=== PATIENT | male | born 1980 | race Caucasian/White ===

== ENCOUNTER 2019-04-20 07:53 | Inpatient (IN) ==
[2019-04-20] MEDS ORDERED: DiphenhydrAMINE HCL 50 MG/ML VIAL ONE ×2 (07:58→07:59)
[2019-04-20] MEDS ORDERED: EPINEPHrine INJ 1 MG/ML AMP ONE (07:58)
[2019-04-20] MEDS ORDERED: SODIUM CHLORIDE 0.9% 250 ML IV PRN (08:00)
[2019-04-20] MEDS ORDERED: methylPREDNISolone 125 MG/2 ML VIAL IV STA (08:02)
[2019-04-20] MEDS ORDERED: LIDOCAINE 4% INH SOLN 4 ML BTL INH ONE (08:08)
[2019-04-20] MEDS ORDERED: FAMOTIDINE 20MG/5ML IV PUSH IV ONE (08:13)
[2019-04-20 08:18] LABS: Basophils # (auto) 0.03 K/uL (0-0.2); Basophils % (auto) 0.3 %; Eosinophils # (auto) 0.17 K/uL (0-0.5); Eosinophils % (auto) 1.6 %; Hematocrit (blood only) 55.2 % (42-52); Hemoglobin 18.6 g/dL (14.0-18.0); Immature Granulocytes # (auto) 0.03 K/uL (0.00-0.02); Immature Granulocytes % (auto) 0.3 %; Lymphocytes # (auto) 1.84 K/uL (1.2-3.4); Lymphocytes % (auto) 17.8 %; Mean Corpuscular Hemoglobin 34.4 pg (25-34); Mean Corpuscular Volume 102.2 fL (80-100); Mean Platelet Volume 11.8 fL (7.4-10.4); Monocytes # (auto) 1.38 K/uL (0.11-0.59); Monocytes % (auto) 13.4 %; Neutrophils # (auto) 6.88 K/uL (1.4-6.5); Neutrophils % (auto) 66.6 %; Platelet Count 232 K/uL (130-400); RDW Coefficient of Variation 13.4 % (11.5-14.5); RDW Standard Deviation 50.3 fL (36.4-46.3); White Blood Count 10.33 K/uL (4.8-10.8)
[2019-04-20 08:24] LABS: Mean Corpuscular Hgb Conc 33.7 g/dL (32-36)
[2019-04-20] MEDS ORDERED: GLYCOPYRROLATE 0.2 MG/ML VIAL ONE (08:26)
[2019-04-20] MEDS ORDERED: KETAMINE HCL INJ 50 MG/ML 10 ML VIAL ONE (08:27)
[2019-04-20] MEDS ORDERED: MIDAZOLAM HCL 1 MG/ML 2ML VIAL ONE ×2 (08:27→09:21)
[2019-04-20 08:39] LABS: Alanine Aminotransferase 31 U/L (12-78); Albumin Level 3.5 gm/dl (3.4-5.0); Aspartate Aminotransferase 11 U/L (15-37); BUN Creatinine Ratio 20.9 (10-20); Blood Urea Nitrogen 16 mg/dl (7-18); Calcium 9.8 mg/dl (8.5-10.1); Carbon Dioxide 30 mmol/L (21-32); Chloride 103 mmol/L (98-107); Est GFR (African American) 130.2; Est GFR (Non-African American) 112.3; Glucose 106 mg/dl (70-99); Potassium 3.6 mmol/L (3.5-5.1); Sodium 137 mmol/L (136-145)
[2019-04-20 08:41] LABS: Albumin Globulin Ratio 0.8 (0.9-2); Alkaline Phosphatase 79 U/L (45-117); Bilirubin,Total 0.6 mg/dl (0.2-1); Globulin 4.4 gm/dl (2.5-4.0); Total Protein 7.9 gm/dl (6.4-8.2)
[2019-04-20] MEDS ORDERED: PROPOFOL IV EMULSION 10 MG/ML 20 ML VIAL IV ONE (09:10)
--- NOTE | 2019-04-20 09:16 | Emergency Department Note ---
Entered by Litzy Hallman acting as a scribe for History of Present Illness General Chief complaint: Allergic Reaction Stated complaint: ALLERGIC REACTION, CAN'T BREATHE Time Seen by Provider: 04/20/19 07:59 History of Present Illness Provider complaint: allergic reaction Onset (ago): hour(s) 8 Pain Consistency: + other (worsening) Maximum Pain Intensity: 5 Quality: + other (allergic reaction) Associated symptoms: + other (unable to speak, having trouble breathing and swallowing, took Lisinopril shortly before this started) Treatments prior to arrival: other (Benadryl) The patient is a 38 year old male who presents to the ED with complaints of a worsening allergic reaction that started 8 hours ago. Per nursing staff, the patient came here via EMS from [facility]. Per nursing staff, the patient is unable to speak and is having trouble breathing and swallowing. Per nursing staff, this episode started shortly after he took Lisinopril. Per EMS, the patient was given Benadryl en route. HPI and ROS limited secondary to respiratory distress. Home Medications Home Medications Medication Instructions Recorded Confirmed Type amlodipine [Norvasc] 10 mg PO HS 04/20/19 04/20/19 History buspirone 10 mg PO DAILY@1700 04/20/19 04/20/19 History escitalopram oxalate [Lexapro] 10 mg PO DAILY@1700 04/20/19 04/20/19 History fluticasone propionate [Flovent 2 puff INHALATION BID 04/20/19 04/20/19 History HFA] folic acid 1 mg PO UD 04/20/19 04/20/19 History levetiracetam [Keppra] 500 mg PO UD 04/20/19 04/20/19 History lisinopril 20 mg PO BID 04/20/19 04/20/19 History metoprolol succinate 100 mg PO DAILY 04/20/19 04/20/19 History multivitamin 1 tab PO DAILY 04/20/19 04/20/19 History omeprazole 40 mg PO DAILY 04/20/19 04/20/19 History prednisone 50 mg PO UD 04/20/19 04/20/19 History thiamine HCl (vitamin B1) 100 mg PO UD 04/20/19 04/20/19 History Allergies Allergy/AdvReac Type Severity Reaction Status Date / Time HOLLAND Inhibitors Allergy Severe Angioedema Verified 04/20/19 10:43 Penicillins Allergy Mild Unknown Unverified 04/20/19 08:41 Sulfa (Sulfonamide Allergy Mild Unknown Unverified 04/20/19 08:41 Antibiotics) Past Med/Surg History Medical History Allergy to penicillin Allergy to sulfa drugs Hypertension Family History Other Unknown family medical history Social History Preferred Language: Swedish Communication Ability: INTUBATED 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 HPI and ROS limited secondary to respiratory distress. Physical Exam Vital Signs Vital Signs - 24 hr 04/20/19 08:01 04/20/19 08:25 Pulse Rate 85 86 Respiratory Rate 16 19 Respiratory Effort / Characteristics Non-Labored Respiratory Depth Normal Blood Pressure 192/105 H Blood Pressure Mean 134 Pulse Oximetry 95 94 Oxygen Delivery Method Room Air Room Air Sepsis Recent Fever Within 48 Hours No Sepsis Action Taken by Nursing No Action Required GENERAL: Awake, alert, well-appearing, in no acute distress HENT: Normocephalic, atraumatic. Oropharynx unremarkable. EYES: Normal conjunctiva. Sclera non-icteric. NECK: Supple. No nuchal rigidity. FROM. No JVD. RESPIRATORY: Clear to auscultation. CARDIAC: Regular rate, normal rhythm. Extremities warm and well perfused. Pulses equal. ABDOMEN: Soft, non-distended. No tenderness to palpation. No rebound or guarding. No masses. RECTAL: Deferred. MUSCULOSKELETAL: Chest examination reveals no tenderness. The back is symmetrical on inspection without obvious abnormality. There is no CVA tenderness to palpation. No joint edema. LOWER EXTREMITIES: Calves are equal size bilaterally and non-tender. No edema. No discoloration. NEURO: Normal sensorium. No sensory or motor deficits noted. SKIN: No rash or jaundice noted. Procedures Procedural Sedation Indication: other (Angioedema to protect airway (Intubation)) Presedation Evaluation: The planned sedation has been discussed with the patient. Informed Consent was obtained. I have identified the patient, determined the appropriateness of sedation and have assessed the patient immediately prior to the procedure. All medicine(s) and interventions are by my order. I performed the procedure Time of Last PO Intake: 20:00 Preparation: rf microwave engineer applied, pulse oximeter, capnometry used, supplemental O2 applied, suction/airway equipment at bedside and IV secured IV Propofol dose (mg): 150 Patient Tolerated Procedure: no complications Complications: none Interventions: intubation (planned intubation (nasal by Dr Morgan)) Course Course 0759: Past medical records reviewed. The patient was evaluated in room A01. A complete history and physical exam was performed. 0803: I discussed the patient's case with Dr. Leroy HONG, [employer] Nurse. 0806: I discussed the patient's case with Dr. Jason Ellis. He wants to send the patient to the PACU. He would like the patient to receive a nebulized lidocaine treatment. Consultations Consultation #1: I discussed the patient's case with Dr. Leroy HONG, [employer] Nurse. Time: 08:03 Consultation #2: I discussed the patient's case with Dr. Jason Ellis. He wants to send the patient to the PACU. He would like the patient to receive a nebulized lidocaine treatment. Time: 08:06 Administered Medications Diphenhydramine HCl (Benadryl) 50 mg IV Q8H [facility] Stop: 05/20/19 11:59 Last Admin: 04/21/19 03:36 Dose: 50 mg Documented by: [id number] Admin: 04/20/19 19:41 Dose: 50 mg Documented by: [id number] Admin: 04/20/19 12:13 Dose: 50 mg Documented by: [id number] Enoxaparin Sodium (Lovenox) 30 mg SQ Q12H [facility] Stop: 05/20/19 09:59 Last Admin: 04/20/19 21:54 Dose: 30 mg Documented by: [id number] Admin: 04/20/19 12:13 Dose: 30 mg Documented by: [id number] Fentanyl Citrate (Fentanyl Citrate) 50 mcg IV Q2H PRN PRN Reason: Moderate Pain (4,5,6) Stop: 05/04/19 09:20 Last Admin: 04/21/19 04:15 Dose: 50 mcg Documented by: [id number] Admin: 04/21/19 00:05 Dose: 50 mcg Documented by: [id number] Admin: 04/20/19 19:39 Dose: 50 mcg Documented by: [id number] Admin: 04/20/19 12:13 Dose: 50 mcg Documented by: [id number] Propofol (Diprivan) 1,000 mg in 100 mls @ 39.999 mls/hr IV .[id number] LOUIE; Protocol Stop: 04/23/19 09:29 Last Admin: 04/21/19 06:18 Dose: 61.16 mcg/kg/min, 40 mls/hr Documented by: [id number] Cosigned by: [id number] Titration: 04/21/19 05:52 Dose: 61.16 mcg/kg/min, 40 mls/hr Documented by: [id number] Cosigned by: [id number] Titration: 04/21/19 04:16 Dose: 61.16 mcg/kg/min, 40 mls/hr Documented by: [id number] Titration: 04/21/19 03:45 Dose: 35 mcg/kg/min, 22.9 mls/hr Documented by: [id number] Admin: 04/21/19 02:31 Dose: 30 mcg/kg/min, 19.6 mls/hr Documented by: [id number] Cosigned by: [id number] Titration: 04/21/19 02:31 Dose: 25 mcg/kg/min, 16.4 mls/hr Documented by: [id number] Cosigned by: [id number] Titration: 04/21/19 00:13 Dose: 25 mcg/kg/min, 16.4 mls/hr Documented by: [id number] Admin: 04/20/19 20:25 Dose: 20 mcg/kg/min, 13.1 mls/hr Documented by: [id number] Cosigned by: [id number] Titration: 04/20/19 20:25 Dose: 20 mcg/kg/min, 13.1 mls/hr Documented by: [id number] Cosigned by: [id number] Titration: 04/20/19 19:07 Dose: 20 mcg/kg/min, 13.1 mls/hr Documented by: [id number] Cosigned by: [id number] Admin: 04/20/19 18:25 Dose: Not Given Documented by: [id number] Titration: 04/20/19 13:02 Dose: 20 mcg/kg/min, 13.1 mls/hr Documented by: [id number] Admin: 04/20/19 12:57 Dose: 25 mcg/kg/min, 16.4 mls/hr Documented by: [id number] Cosigned by: [id number] Titration: 04/20/19 12:57 Dose: 30 mcg/kg/min, 19.6 mls/hr Documented by: [id number] Cosigned by: [id number] Titration: 04/20/19 12:24 Dose: 30 mcg/kg/min, 19.6 mls/hr Documented by: [id number] Titration: 04/20/19 12:14 Dose: 35 mcg/kg/min, 22.9 mls/hr Documented by: [id number] Titration: 04/20/19 10:20 Dose: 40 mcg/kg/min, 26.2 mls/hr Documented by: [id number] Titration: 04/20/19 10:10 Dose: 35 mcg/kg/min, 22.9 mls/hr Documented by: [id number] Titration: 04/20/19 10:05 Dose: 30 mcg/kg/min, 19.6 mls/hr Documented by: [id number] Titration: 04/20/19 10:00 Dose: 25 mcg/kg/min, 16.4 mls/hr Documented by: [id number] Titration: 04/20/19 09:55 Dose: 20 mcg/kg/min, 13.1 mls/hr Documented by: [id number] Titration: 04/20/19 09:45 Dose: 15 mcg/kg/min, 9.8 mls/hr Documented by: [id number] Titration: 04/20/19 09:37 Dose: 10 mcg/kg/min, 6.5 mls/hr Documented by: [id number] Admin: 04/20/19 09:32 Dose: 5 mcg/kg/min, 3.3 mls/hr Documented by: [id number] Cosigned by: [id number] Midazolam HCl (Versed) 125 mg in 250 mls @ 14 mls/hr IV .[id number] [facility]; Protocol Stop: 05/20/19 09:29 Last Titration: 04/21/19 04:17 Dose: 7 mg/hr, 14 mls/hr Documented by: [id number] Admin: 04/21/19 02:35 Dose: 6.5 mg/hr, 13 mls/hr Documented by: [id number] Cosigned by: [id number] Titration: 04/21/19 02:35 Dose: 6.5 mg/hr, 13 mls/hr Documented by: [id number] Cosigned by: [id number] Titration: 04/21/19 00:05 Dose: 6.5 mg/hr, 13 mls/hr Documented by: [id number] Titration: 04/20/19 19:07 Dose: 6 mg/hr, 12 mls/hr Documented by: [id number] Cosigned by: [id number] Titration: 04/20/19 12:14 Dose: 6 mg/hr, 12 mls/hr Documented by: [id number] Titration: 04/20/19 11:30 Dose: 5 mg/hr, 10 mls/hr Documented by: [id number] Titration: 04/20/19 10:30 Dose: 4 mg/hr, 8 mls/hr Documented by: [id number] Titration: 04/20/19 10:00 Dose: 2 mg/hr, 4 mls/hr Documented by: [id number] Admin: 04/20/19 09:34 Dose: 1 mg/hr, 2 mls/hr Documented by: [id number] Cosigned by: [id number] Parenteral Electrolytes (Normosol-R) 1,000 mls @ 80 mls/hr IV .[id number] LOUIE Stop: 05/20/19 09:29 Last Admin: 04/20/19 21:56 Dose: 80 mls/hr Documented by: [id number] Infusion: 04/20/19 21:56 Dose: 80 mls/hr Documented by: [id number] Infusion: 04/20/19 19:07 Dose: 80 mls/hr Documented by: [id number] Admin: 04/20/19 09:34 Dose: 80 mls/hr Documented by: [id number] Famotidine 20 mg/ Syringe 5 mls @ 2.5 mls/min IV BID LOUIE Stop: 05/20/19 20:59 Last Admin: 04/20/19 21:54 Dose: 2.5 mls/min Documented by: [id number] Methylprednisolone 80 mg/ (Syringe) 1.28 mls @ 1.5 mls/min IV Q6H LOUIE Stop: 05/20/19 13:59 Last Admin: 04/21/19 01:35 Dose: 1.5 mls/min Documented by: [id number] Admin: 04/20/19 19:41 Dose: 1.5 mls/min Documented by: [id number] Admin: 04/20/19 15:19 Dose: 1.5 mls/min Documented by: [id number] Metoprolol Tartrate (Lopressor) 50 mg PO BID LOUIE Stop: 05/20/19 09:44 Last Admin: 04/20/19 20:24 Dose: Not Given Documented by: [id number] Admin: 04/20/19 10:37 Dose: Not Given Documented by: [id number] Discontinued Medications Diphenhydramine HCl (Benadryl) Confirm Administered Dose 50 mg .ROUTE .STK-MED ONE Stop: 04/20/19 07:59 Last Admin: 04/20/19 08:05 Dose: 50 mg Documented by: [id number] Diphenhydramine HCl (Benadryl) Confirm Administered Dose 50 mg .ROUTE .STK-MED ONE Stop: 04/20/19 08:00 Last Admin: 04/20/19 08:04 Dose: Not Given Documented by: [id number] Epinephrine HCl (Epinephrine) Confirm Administered Dose 1 mg .ROUTE .STK-MED ONE Stop: 04/20/19 07:59 Last Admin: 04/20/19 08:05 Dose: 0.3 mg Documented by: [id number] Famotidine (Pepcid 20mg Iv Push) Confirm Administered Dose 40 mg IV .STK-MED ONE Stop: 04/20/19 08:14 Last Admin: 04/20/19 08:15 Dose: 40 mg Documented by: [id number] Fentanyl Citrate (Fentanyl Citrate) Confirm Administered Dose 100 mcg .ROUTE .S TK-MED ONE Stop: 04/20/19 09:23 Last Admin: 04/20/19 09:26 Dose: 100 mcg Documented by: [id number] Glycopyrrolate (Robinul) Confirm Administered Dose 0.4 mg .ROUTE .STK-MED ONE Stop: 04/21/19 05:46 Last Admin: 04/21/19 06:14 Dose: Not Given Documented by: [id number] Glycopyrrolate (Robinul) 0.2 mg IV ONCE STA Stop: 04/21/19 05:46 Last Admin: 04/21/19 06:17 Dose: 0.2 mg Documented by: [id number] Sodium Chloride (Nss) 250 mls @ 15 mls/hr IV .[id number] PRN PRN Reason: For Transfusion Stop: 04/20/19 18:01 Last Infusion: 04/20/19 18:27 Dose: 0 mls/hr Documented by: [id number] Admin: 04/20/19 08:05 Dose: 15 mls/hr Documented by: [id number] Ranitidine HCl 50 mg/ Dextrose 102 mls @ 200 mls/hr IV NOW STA Stop: 04/20/19 08:33 Last Admin: 04/20/19 08:16 Dose: Not Given Documented by: [id number] Ketamine HCl (Ketalar Steri-Vial) 20 mg IV NOW STA Stop: 04/21/19 05:56 Last Admin: 04/21/19 06:17 Dose: 20 mg Documented by: [id number] Ketamine HCl (Ketalar Steri-Vial) Confirm Administered Dose 1,000 mg .ROUTE .STK-MED ONE Stop: 04/21/19 05:57 Last Admin: 04/21/19 06:15 Dose: Not Given Documented by: [id number] Lidocaine HCl (Xylocaine 4% Inh Soln) 3 ml INH NOW ONE Stop: 04/20/19 08:09 Last Admin: 04/20/19 10:36 Dose: Not Given Documented by: [id number] Methylprednisolone (Solumedrol) 125 mg IV NOW STA Stop: 04/20/19 08:03 Last Admin: 04/20/19 08:06 Dose: 125 mg Documented by: [id number] Midazolam HCl (Versed) Confirm Administered Dose 2 mg .ROUTE .STK-MED ONE Stop: 04/20/19 09:22 Last Admin: 04/20/19 09:26 Dose: 2 mg Documented by: [id number] Propofol (Diprivan) Confirm Administered Dose 1,000 mg IV .STK-MED ONE Stop: 04/20/19 09:24 Last Admin: 04/20/19 09:34 Dose: Not Given Documented by: [id number] Critical Care Time I have personally spent greater than 90 minutes of critical care time in the direct management of this patient. This includes bedside care, interpretation of diagnostic studies, and testing, discussion with consultants, patient, and family members, and other required patient management activities. This 90 minutes is in excess of all separately billable procedures. Medical Decision Making Differential Diagnosis Differential diagnosis: Etiologies such as allergic reaction, anaphylaxis, urticaria, angioedema, S tevens-Jori syndrome, toxic epidermal necrolysis, erythema multiforme, cellulitis, as well as others were entertained. Medical Records Attestation: I reviewed the patient's medical records. Home Medications Current Medication List: was personally reviewed by me Laboratory Data Attestation: I reviewed the patient's lab results. Result diagrams: 04/21/19 03:56 04/21/19 03:56 Lab Results 04/20/19 04/20/19 04/20/19 Range/Units 08:03 08:03 08:03 WBC 10.33 (4.8-10.8) K/uL RBC 5.40 (4.7-6.1) M/uL Hgb 18.6 H (14.0-18.0) g/dL Hct 55.2 H (42-52) % MCV 102.2 H (80-100) fL MCH 34.4 H (25-34) pg MCHC 33.7 (32-36) g/dL RDW Std Deviation 50.3 H (36.4-46.3) fL RDW Coeff of Nimo 13.4 (11.5-14.5) % Plt Count 232 (130-400) K/uL MPV 11.8 H (7.4-10.4) fL Immature Gran % (Auto) 0.3 % Neut % (Auto) 66.6 % Lymph % (Auto) 17.8 % [place] % (Auto) 13.4 % Eos % (Auto) 1.6 % Baso % (Auto) 0.3 % Immature Gran # (Auto) 0.03 H (0.00-0.02) K/uL Neut # (Auto) 6.88 H (1.4-6.5) K/uL Lymph # (Auto) 1.84 (1.2-3.4) K/uL [place] # (Auto) 1.38 H (0.11-0.59) K/uL Eos # (Auto) 0.17 (0-0.5) K/uL Baso # (Auto) 0.03 (0-0.2) K/uL Sodium 137 (136-145) mmol/L Potassium 3.6 (3.5-5.1) mmol/L Chloride 103 (98-107) mmol/L Carbon Dioxide 30 (21-32) mmol/L Anion Gap 5.0 (3-11) BUN 16 (7-18) mg/dl Creatinine 0.79 (0.6-1.4) mg/dl Est Cr Clr Drug Dosing Not Reportable Est GFR ( Amer) 130.2 Est GFR (Non-Af Amer) 112.3 BUN/Creatinine Ratio 20.9 H (10-20) Glucose 106 H (70-99) mg/dl Calcium 9.8 (8.5-10.1) mg/dl Total Bilirubin 0.6 (0.2-1) mg/dl AST 11 L (15-37) U/L ALT 31 (12-78) U/L Alkaline Phosphatase 79 (45-117) U/L Total Protein 7.9 (6.4-8.2) gm/dl Albumin 3.5 (3.4-5.0) gm/dl Globulin 4.4 H (2.5-4.0) gm/dl Albumin/Globulin Ratio 0.8 L (0.9-2) Blood Type A Positive Blood Type Recheck Antibody Screen NEGATIVE 04/20/19 Range/Units 08:13 WBC (4.8-10.8) K/uL RBC (4.7-6.1) M/uL Hgb (14.0-18.0) g/dL Hct (42-52) % MCV (80-100) fL MCH (25-34) pg MCHC (32-36) g/dL RDW Std Deviation (36.4-46.3) fL RDW Coeff of Nimo (11.5-14.5) % Plt Count (130-400) K/uL MPV (7.4-10.4) fL Immature Gran % (Auto) % Neut % (Auto) % Lymph % (Auto) % [place] % (Auto) % Eos % (Auto) % Baso % (Auto) % Immature Gran # (Auto) (0.00-0.02) K/uL Neut # (Auto) (1.4-6.5) K/uL Lymph # (Auto) (1.2-3.4) K/uL [place] # (Auto) (0.11-0.59) K/uL Eos # (Auto) (0-0.5) K/uL Baso # (Auto) (0-0.2) K/uL Sodium (136-145) mmol/L Potassium (3.5-5.1) mmol/L Chloride (98-107) mmol/L Carbon Dioxide (21-32) mmol/L Anion Gap (3-11) BUN (7-18) mg/dl Creatinine (0.6-1.4) mg/dl Est Cr Clr Drug Dosing Est GFR ( Amer) Est GFR (Non-Af Amer) BUN/Creatinine Ratio (10-20) Glucose (70-99) mg/dl Calcium (8.5-10.1) mg/dl Total Bilirubin (0.2-1) mg/dl AST (15-37) U/L ALT (12-78) U/L Alkaline Phosphatase (45-117) U/L Total Protein (6.4-8.2) gm/dl Albumin (3.4-5.0) gm/dl Globulin (2.5-4.0) gm/dl Albumin/Globulin Ratio (0.9-2) Blood Type Blood Type Recheck A Positive Antibody Screen Imaging Data Radiologist's Impression: Radiology results as stated below per my review and the radiologist's interpretation: XR chest 1V portable HISTORY: intubation COMPARISON: None. FINDINGS: Low lung volumes. No pneumothorax. No pleural effusions. Cardiac silhouette is mildly enlarged. This may be exaggerated by the low lung volumes. There is diffuse interstitial thickening which may represent mild congestive c hange or the hypoventilatory appearance of the chest. The endotracheal tube terminates 6.7 cm in the lexie. IMPRESSION: 1. The endotracheal tube terminates 6.7 cm from the lexie. This should be ad vanced by approximately 3 cm. 2. Cardiac and interstitial prominence. This could be due to mild congestive change or the low lung volumes. ACT 112: Negative or not required by law. Electronically signed by: James Ceja M.D. 04/20/2019 9:47 AM Blood Pressure Blood Pressure Findings: Normal blood pressure Blood Pressure Disposition: did not require urgent referral MDM Narrative This is a 38-year-old male who presents emergency department with angioedema to his tongue. The patient is an acute distress. Because of this the patient was immediately given IM epinephrine here in the emergency department. 2 IVs were established the patient was given Benadryl as well as Zantac. I am concerned that this is angioedema however due to the patient being on lisinopril. He was typed and screened and written for 2 units of FFP. Both the dental laboratory manager as well as anesthesia were immediately contacted. Due to the high risk of this patient's airway he was brought to the PACU where he was intubated by anesthesia. He did receive propofol for placement of the tube as above. Patient did sign blood consent and this was placed on the chart. Patient was discussed with the hospitalist. Impression & Plan Angioedema, Airway compromise Discharge Plan Visit Data *Final* Discharge Date/Time: 04/20/19 08:25 Chief Complaint: Allergic Reaction Stated Complaint: ALLERGIC REACTION, CAN'T BREATHE ED Provider: Gerson Zhang Discharge Problem: Angioedema, Airway compromise Patient Disposition: Being Evaluated by Hospitalist Discharge Problem: Angioedema Qualifiers: Encounter type: initial encounter Qualified Code(s): T78.3XXA - Angioneurotic edema, initial encounter The scribe's documentation has been prepared under my direction and personally reviewed by me in its entirety. I confirm that the note above accurately refle cts all work, treatment, procedures, and medical decision making performed by me.
[2019-04-20] MEDS ORDERED: MIDAZOLAM HCL 1 MG/ML 2ML VIAL IV PRN (09:21)
[2019-04-20] MEDS ORDERED: STAT IV Infusion **Titration per Protocol STA (09:21)
[2019-04-20] MEDS ORDERED: fentaNYL citrate 100 MCG/2 ML VIAL ONE (09:22)
[2019-04-20] MEDS ORDERED: ICU PROTOCOL FOR HYPERGLYCEMIA PRN (09:22)
--- NOTE | 2019-04-20 09:22 | Anesthesiology Progress Note ---
Date of Service April 20, 2019 Subjective I was called by Dr. Zhang. The patient has a h/o lisinipril use, and he pre sented today with angioedema. The patient was unable to speak 2/2 tongue swelling. He was able to communicate with pen/paper. The patient stated having difficulty swallowing but his ability to breath was not impaired. I spoke to the patient about an awake nasal intubation and he agreed. The patient was given a 4% lidocaine nebulizer treatment. B/L nares were sprayed with afrin. I administered 0.2mg glycopyrrolate through his IV. The patient was breathing through a nasal cannula by mouth. He was given 2mg of midazolam and 20mg of ketamine. A fiberoptic scope was passed through his left nares. The vocal cords were visualized. A 6.5 endotracheal tube was placed in the trachea. There was B/L breath sounds. The ETT was taped by respiratory. The patient was administered 300mg of propofol for further sedation. A CXR was performed. The patient was hypertensive and tachycardic throughout but his O2 saturations were acceptable. Report was given to the airport operations officer. The patient was subsequently tr ansferred to the ICU for further care. Physical Exam Vital Signs: Last Vital Signs Pulse 86 04/20/19 08:25 Resp 19 04/20/19 08:25 BP 192/105 H 04/20/19 08:01 Pulse Ox 94 04/20/19 08:25 Results & Data Medications Administered Sodium Chloride (Nss) 250 mls @ 15 mls/hr IV .[id number] PRN PRN Reason: For Transfusion Stop: 04/20/19 18:01 Last Admin: 04/20/19 08:05 Dose: 15 mls/hr Documented by: [id number]
[2019-04-20] MEDS ORDERED: ICU ELECTROLYTE REPLACEMENT PROTOCOL PRN (09:23)
[2019-04-20] MEDS ORDERED: PROPOFOL IV EMULSION 10 MG/ML 100 ML VIAL IV ONE (09:23)
[2019-04-20] MEDS: propofoL 1,000 MG/100 ML VIAL IV SCH ×4 (09:32→20:25)
[2019-04-20] MEDS: MIDAZOLAM HCL 125 MG/250 ML BAG IV SCH (09:34)
[2019-04-20] MEDS: NORMOSOL-R 1,000 ML IV SCH ×2 (09:34→21:56)
--- NOTE | 2019-04-20 09:35 | Critical Care Consultation ---
Date of Consultation April 20, 2019 Assessment & Plan (1) Angioedema: Impression: 38-year-old male with hypertension obesity and questionable seizure disorder admitted with angioedema. The tongue appears to be primarily affected. Fortunately the vocal cords and epiglottis do not show any evidence of edema. He was intubated nasotracheally fiberoptically awake upright by anesthesia. Recommendations: 1. Angioedema: This does not appear to be an allergic reaction likely represents reaction to lisinopril. Check C1 esterase as well as complement levels. FFP has been ordered by the ER however studies have not demonstrated a clear efficacy. We do not have access to ecallantide or icatibant. Doubt this is an allergic reaction so probably no role for epi. Steroids and H2/H1 bloc kers are unlikely to be of significant benefit, but low risk of harm, especially as we do not have documented previous history of angioedema although clinical presentation is highly suggestive. 2. Airway compromise: Prophylactically intubated. Continue intubation pending improvement in the patient's angioedema. 3. Hypertension: We will continue the patient's beta-tash. 4. Depression: Holding Lexapro and buspirone for now. 5. Alcohol abuse: [facility] We will continue thiamine folate. Unclear why he was taking Keppra but this wi ll be held for now. May benefit from Precedex if alcohol withdrawal becomes an issue Airway issues. Continue to monitor in ICU pending resolution of (2) Airway compromise: (3) Hypertension: History of Present Illness Attending Physician: Irvin Rizzo DO History of Present Illness Called by the emergency room for patient with angioedema. Patient is being admitted the hospitalist service and critical care consultation required for angioedema with airway compromise. History is obtained from discussion with the ER staff as well as review the electronic medical record. The patient is intubated and unable to provide history. This 38-year-old male who is on lisinopril and metoprolol for hypertension presented to the emergency room today with acute onset of tongue swelling. He was assessed by the emergency room and felt to have airway compromise. Anesthesia was contacted and the patient was taken to the PACU. I presented to the PACU where the patient was currently undergoing awake nasotracheal fiberoptic intubation. He received Versed ketamine and propofol. Anesthesia was successful in placing a scope through the left nares. The vocal cords were visualized and did not appear significantly edematous. Epiglottis was also not significantly edematous. Anesthesia was successful in placing a 6.5 endotracheal tube. The patient was then administered additional propofol boluses and transferred directly to the intensive care unit. I accompanied him to the ICU. No additional history is currently available as the patient is intubated and Allergies Allergy/AdvReac Type Severity Reaction Status Date / Time Penicillins Allergy Mild Unknown Unverified 04/20/19 08:41 Sulfa (Sulfonamide Allergy Mild Unknown Unverified 04/20/19 08:41 Antibiotics) Home Medications Home Medications Medication Instructions Recorded Confirmed Type amlodipine [Norvasc] 10 mg PO HS 04/20/19 04/20/19 History buspirone 10 mg PO DAILY@1700 04/20/19 04/20/19 History escitalopram oxalate [Lexapro] 10 mg PO DAILY@1700 04/20/19 04/20/19 History fluticasone propionate [Flovent 2 puff INHALATION BID 04/20/19 04/20/19 History HFA] folic acid 1 mg PO UD 04/20/19 04/20/19 History levetiracetam [Keppra] 500 mg PO UD 04/20/19 04/20/19 History lisinopril 20 mg PO BID 04/20/19 04/20/19 History metoprolol succinate 100 mg PO DAILY 04/20/19 04/20/19 History multivitamin 1 tab PO DAILY 04/20/19 04/20/19 History omeprazole 40 mg PO DAILY 04/20/19 04/20/19 History prednisone 50 mg PO UD 04/20/19 04/20/19 History thiamine HCl (vitamin B1) 100 mg PO UD 04/20/19 04/20/19 History Patient History Medical History (Updated 04/20/19 @ 09:31 by Fady Cardoza MD) Allergy to penicillin Allergy to sulfa drugs Social History Feels Safe at Home: Yes Smoking Status: Unknown if ever smoked Review of Systems Review of Systems: Unobtainable due to endotracheal tube Physical Exam Constitutional: well developed Intubated and sedated Eyes: PERRL ENMT: Markedly swollen tongue. Neck: trachea midline, no thyromegaly Respiratory: normal respiratory effort, lungs clear to auscultation Cardiovascular: RRR, no murmur, no edema Gastrointestinal (Abdomen): normal bowel sounds, soft, nontender, no hepatosplenomegaly Skin: no rashes, warm and dry Results & Data ([facility]) Vital Signs (Past 12 Hours) Vital Signs Pulse Resp BP Pulse Ox 04/20/19 08:25 86 19 94 04/20/19 08:01 85 16 192/105 H 95 Laboratory Results 04/20/19 08:03 04/20/19 08:03 Diagnostic Findings Post intubation chest x-ray was independently reviewed. The nasotracheal tube is slightly high just above the level of the clavicles. Coding Level of Care Code Critical Care 1st 30-74 mins Diagnoses Angioedema T78.3XXA Airway compromise J98.8 Hypertension I10 Time Spent (min) 50
--- NOTE | 2019-04-20 09:48 | XRay Report ---
XR chest 1V portable HISTORY: intubation COMPARISON: None. FINDINGS: Low lung volumes. No pneumothorax. No pleural effusions. Cardiac silhouette is mildly enlar ged. This may be exaggerated by the low lung volumes. There is diffuse interstitial thickening which may represent mild congestive change or the hypoventilatory appearance of the chest. The endotracheal tube terminates 6.7 cm in the lexie. IMPRESSION: 1. The endotracheal tube terminates 6.7 cm from the lexie. This should be advanced by approximately 3 cm. 2. Cardiac and interstitial prominence. This could be due to mild congestive change or the low lung v olumes. ACT 112: Negative or not required by law. Electronically signed by: James Ceja M.D. 04/20/2019 9:47 AM
[2019-04-20] MEDS ORDERED: FAMOTIDINE 20 MG in SYRINGE 3 ML IV SCH (10:00)
[2019-04-20] MEDS: METOPROLOL TARTRATE 50 MG TAB PO SCH ×2 (10:37→20:24)
--- NOTE | 2019-04-20 10:51 | History & Physical Report ---
Date of Service April 20, 2019 Assessment & Plan (1) Angioedema: Secondary to lisinopril usage. - Intubated for airway protection - Giving steroids, histamine tash (Benadryl), and H2 tash per ICU team (2) Hypertension: BP is 190/100 during intubation. Has history of HTN, but may also be agitation from intubation. - Continue beta-tash - Consider restarting calcium channel tash as able (3) Alcohol use: Per report was in a drug/alcohol rehab facility. - On sedation at present, so withdrawal is not an issue. (4) Polycythemia: Hgb of 18 on admission. Possibly due to smoking. Unclear if he has ever had this before or any prior work-up. - On DVT ppx - Monitor (5) Anxiety: Per indication from his medications. Will need to ensure Keppra is not for any seizure disorder and monitor for seizures once off sedation. - Continue medications as able (6) DVT prophylaxis: Lovenox 30 mg SQ daily History of Present Illness Primary Care Provider: NO PCP 38yo M w/ hx of HTN, alcohol use who presents with angioedema. Per report, the patient was at an alcohol rehab facility with high blood pressure. His lisinopril was increased (per report, he was already on a lower dose), and he had an episode of angioedema and was brought to the Emergency Department. He was breathing through his mouth and denied shortness of breath, but given the risk of airway closure, he agreed to intubation as a preventative measure. The swelling of his airway was bad enough that anesthesiology was called, and he was intubated in the PACU via naso-tracheal intubation. Allergies Allergy/AdvReac Type Severity Reaction Status Date / Time HOLLAND Inhibitors Allergy Severe Angioedema Verified 04/20/19 10:43 Penicillins Allergy Mild Unknown Unverified 04/20/19 08:41 Sulfa (Sulfonamide Allergy Mild Unknown Unverified 04/20/19 08:41 Antibiotics) Home Medications Home Medications Medication Instructions Recorded Confirmed Type amlodipine [Norvasc] 10 mg PO HS 04/20/19 04/20/19 History buspirone 10 mg PO DAILY@0 04/20/19 04/20/19 History escitalopram oxalate [Lexapro] 10 mg PO DAILY@169904/20/19 04/20/19 History fluticasone propionate [Flovent 2 puff INHALATION BID 04/20/19 04/20/19 History HFA] folic acid 1 mg PO UD 04/20/19 04/20/19 History levetiracetam [Keppra] 500 mg PO UD 04/20/19 04/20/19 History lisinopril 20 mg PO BID 04/20/19 04/20/19 History metoprolol succinate 100 mg PO DAILY 04/20/19 04/20/19 History multivitamin 1 tab PO DAILY 04/20/19 04/20/19 History omeprazole 40 mg PO DAILY 04/20/19 04/20/19 History prednisone 50 mg PO UD 04/20/19 04/20/19 History thiamine HCl (vitamin B1) 100 mg PO UD 04/20/19 04/20/19 History Past Med/Surg History Medical History Allergy to penicillin Allergy to sulfa drugs Hypertension Family History Other Unknown family medical history Social History Preferred Language: Khmer Communication Ability: INTUBATED 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 Current Living Situation: Spouse Feels Safe at Home: Yes Smoking Status: Unknown if ever smoked Review of Systems Review of Systems: Unobtainable due to endotracheal tube and Unobtainable due to reduced consciousness Physical Exam Constitutional: WD/WN, vitals as above + acute distress, + morbidly obese and + lethargic Eyes: EOM intact bilaterally; no conjunctival abnormality ENMT: external ear and nose normal, oropharynx normal Nose: + external nose abnormality (Nasal intubation) Mouth: + tongue abnormality (Angioedema) Neck: trachea midline, no thyromegaly normal visual inspection Respiratory: normal respiratory effort, lungs clear to auscultation no respiratory distress Cardiovascular: Rate/Rhythm: + tachycardic Heart Sounds: normal S1 and normal S2 Vessels: no JVD Extremities: no edema Gastrointestinal (Abdomen): Inspection/Auscultation: abdomen normal to inspection and + abdomen distended Percussion/Palpation: abdomen soft; abdomen nontender, no guarding and abdomen not rigid Musculoskeletal: no cyanosis or clubbing, extremities motor strength 5/5 Skin: no rashes, warm and dry Neurologic: + does not move all extremities and + not awake Psychiatric: Orientation: cooperative; + not alert and + not oriented to person Results & Data Vital Signs (Past 12 Hours) Vital Signs Temp Pulse Pulse Resp BP Pulse Ox 04/20/19 10:14 37.1 C 92 H 20 98 04/20/19 09:30 116 H 26 H 95 04/20/19 08:25 86 19 94 04/20/19 08:01 85 16 192/105 H 95 PG Care Time/CCT Total # of Minutes Spent Total Time Spent with Patient: Total time spent is greater than 50% in coordination of care (as documented) at patient's floor/unit and/or counseling patient: Coding Level of Care Code 18473 Initial Inpt Care Lvl 3 Diagnoses Angioedema T78.3XXA Hypertension I10 Alcohol use Z72.89 Polycythemia D75.1 Anxiety F41.9 DVT prophylaxis Z29.9
[2019-04-20] MEDS: fentaNYL citrate 100 MCG/2 ML VIAL IV PRN ×2 (12:13→19:39)
[2019-04-20] MEDS: DiphenhydrAMINE HCL 50 MG/ML VIAL IV SCH ×2 (12:13→19:41)
[2019-04-20] MEDS: ENOXAPARIN INJ 30 MG/0.3 ML SYR SQ SCH ×2 (12:13→21:54)
[2019-04-20] MEDS: methylPREDNISolone 80 MG in SYRINGE 0 ML IV SCH ×2 (15:19→19:41)
[2019-04-20] MEDS: FAMOTIDINE 20 MG in SYRINGE 3 ML IV SCH (21:54)
[2019-04-21] MEDS: fentaNYL citrate 100 MCG/2 ML VIAL IV PRN ×5 (00:05→19:48)
[2019-04-21] MEDS: methylPREDNISolone 80 MG in SYRINGE 0 ML IV SCH (01:35)
[2019-04-21] MEDS: propofoL 1,000 MG/100 ML VIAL IV SCH ×8 (02:31→21:17)
[2019-04-21] MEDS: MIDAZOLAM HCL 125 MG/250 ML BAG IV SCH ×3 (02:35→19:06)
[2019-04-21] MEDS: DiphenhydrAMINE HCL 50 MG/ML VIAL IV SCH ×3 (03:36→19:32)
[2019-04-21 04:14] LABS: Hematocrit (blood only) 52.4 % (42-52); Hemoglobin 17.8 g/dL (14.0-18.0); Mean Corpuscular Volume 102.9 fL (80-100); Mean Platelet Volume 11.7 fL (7.4-10.4); Platelet Count 254 K/uL (130-400); RDW Coefficient of Variation 13.3 % (11.5-14.5); RDW Standard Deviation 50.5 fL (36.4-46.3); Red Blood Count 5.09 M/uL (4.7-6.1); White Blood Count 10.24 K/uL (4.8-10.8)
[2019-04-21 04:38] LABS: BUN Creatinine Ratio 24.4 (10-20); Calcium 9.2 mg/dl (8.5-10.1); Creatinine Clr Calc Pharmacy 147.5 ml/min; Est GFR (African American) 128.8; Est GFR (Non-African American) 111.2; Magnesium 2.2 mg/dl (1.8-2.4); Phosphorus 4.5 mg/dl (2.5-4.9); Potassium 4.2 mmol/L (3.5-5.1)
[2019-04-21 05:13] LABS: iSTAT Allen Test Pass; iSTAT Art Bld Gas pCO2 Correct 51 mmHg (35-46); iSTAT Art Bld Gas pH Corrected 7.337 (7.35-7.45); iSTAT Arterial Blood Gas HCO3 27 meg/L (19-24); iSTAT Arterial Blood Gas pCO2 51 mmHg (35-46); iSTAT Arterial Blood Gas pH 7.34 (7.35-7.45); iSTAT Arterial Blood Gas pO2 51 mmHg (80-95); iSTAT Arterial Blood Gas pO2 C 50; iSTAT Carbon Dioxide 29 mmol/L (24-31); iSTAT FiO2 50 %; iSTAT Hematocrit 50 % (42-52); iSTAT Potassium 3.9 mmol/L (3.3-5.0); iSTAT Site L Radial; iSTAT Sodium 137 mmol/L (135-144)
[2019-04-21] MEDS ORDERED: GLYCOPYRROLATE 0.2 MG/ML VIAL ONE (05:45)
[2019-04-21] MEDS ORDERED: GLYCOPYRROLATE 0.2 MG/ML VIAL IV STA (05:45)
[2019-04-21] MEDS ORDERED: KETAMINE HCL INJ 50 MG/ML 10 ML VIAL IV STA (05:55)
[2019-04-21] MEDS ORDERED: KETAMINE HCL INJ 50 MG/ML 10 ML VIAL ONE (05:56)
--- NOTE | 2019-04-21 06:23 | Anesthesiology Progress Note ---
Date of Service April 21, 2019 Subjective pt was intubated fiberoptically in the OR for angioedema. pt was sedated when his saturations dropped from 95% on 40% O@ to 88%. The tube appeared to be further out. I was called at that point. Pt on 100% O2 and saturation of 92%. I attemtpted to pass a bronchoscope orally, but patient began to desaturate. 0.2 glycopyrolate and 20 mg of Ketamine were given. I passed the scope through the tube and saw it was in the lungs. I advanced the tube further. pt saturations did not change. I then decided to reconfirm and the tube is in the lungs above the lexie. This was witnessed by ICU staff. I then advised them to look at non tube related causes of the desaturation. Physical Exam Vital Signs: Last Vital Signs Temp 37.1 C 04/21/19 00:41 Pulse 74 04/21/19 02:07 Resp 16 04/21/19 02:07 BP 123/77 04/21/19 02:00 Pulse Ox 92 04/21/19 02:07 Results & Data Medications Administered Diphenhydramine HCl (Benadryl) 50 mg IV Q8H [facility] Stop: 05/20/19 11:59 Last Admin: 04/21/19 03:36 Dose: 50 mg Documented by: [id number] Admin: 04/20/19 19:41 Dose: 50 mg Documented by: [id number] Admin: 04/20/19 12:13 Dose: 50 mg Documented by: [id number] Enoxaparin Sodium (Lovenox) 30 mg SQ Q12H [facility] Stop: 05/20/19 09:59 Last Admin: 04/20/19 21:54 Dose: 30 mg Documented by: [id number] Admin: 04/20/19 12:13 Dose: 30 mg Documented by: [id number] Fentanyl Citrate (Fentanyl Citrate) 50 mcg IV Q2H PRN PRN Reason: Moderate Pain (4,5,6) Stop: 05/04/19 09:20 Last Admin: 04/21/19 04:15 Dose: 50 mcg Documented by: [id number] Admin: 04/21/19 00:05 Dose: 50 mcg Documented by: [id number] Admin: 04/20/19 19:39 Dose: 50 mcg Documented by: [id number] Admin: 04/20/19 12:13 Dose: 50 mcg Documented by: [id number] Propofol (Diprivan) 1,000 mg in 100 mls @ 39.999 mls/hr IV .Q2H30M LOUIE; Pr otocol Stop: 04/23/19 09:29 Last Admin: 04/21/19 06:18 Dose: 61.16 mcg/kg/min, 40 mls/hr Documented by: [id number] Cosigned by: [id number] Titration: 04/21/19 05:52 Dose: 61.16 mcg/kg/min, 40 mls/hr Documented by: [id number] Cosigned by: [id number] Titration: 04/21/19 04:16 Dose: 61.16 mcg/kg/min, 40 mls/hr Documented by: [id number] Titration: 04/21/19 03:45 Dose: 35 mcg/kg/min, 22.9 mls/hr Documented by: [id number] Admin: 04/21/19 02:31 Dose: 30 mcg/kg/min, 19.6 mls/hr Documented by: [id number] Cosigned by: [id number] Titration: 04/21/19 02:31 Dose: 25 mcg/kg/min, 16.4 mls/hr Documented by: [id number] Cosigned by: [id number] Titration: 04/21/19 00:13 Dose: 25 mcg/kg/min, 16.4 mls/hr Documented by: [id number] Admin: 04/20/19 20:25 Dose: 20 mcg/kg/min, 13.1 mls/hr Documented by: [id number] Cosigned by: [id number] Titration: 04/20/19 20:25 Dose: 20 mcg/kg/min, 13.1 mls/hr Documented by: [id number] Cosigned by: [id number] Titration: 04/20/19 19:07 Dose: 20 mcg/kg/min, 13.1 mls/hr Documented by: [id number] Cosigned by: [id number] Admin: 04/20/19 18:25 Dose: Not Given Documented by: [id number] Titration: 04/20/19 13:02 Dose: 20 mcg/kg/min, 13.1 mls/hr Documented by: [id number] Admin: 04/20/19 12:57 Dose: 25 mcg/kg/min, 16.4 mls/hr Documented by: [id number] Cosigned by: [id number] Titration: 04/20/19 12:57 Dose: 30 mcg/kg/min, 19.6 mls/hr Documented by: [id number] Cosigned by: [id number] Titration: 04/20/19 12:24 Dose: 30 mcg/kg/min, 19.6 mls/hr Documented by: [id number] Titration: 04/20/19 12:14 Dose: 35 mcg/kg/min, 22.9 mls/hr Documented by: [id number] Titration: 04/20/19 10:20 Dose: 40 mcg/kg/min, 26.2 mls/hr Documented by: [id number] Titration: 04/20/19 10:10 Dose: 35 mcg/kg/min, 22.9 mls/hr Documented by: [id number] Titration: 04/20/19 10:05 Dose: 30 mcg/kg/min, 19.6 mls/hr Documented by: [id number] Titration: 04/20/19 10:00 Dose: 25 mcg/kg/min, 16.4 mls/hr Documented by: [id number] Titration: 04/20/19 09:55 Dose: 20 mcg/kg/min, 13.1 mls/hr Documented by: [id number] Titration: 04/20/19 09:45 Dose: 15 mcg/kg/min, 9.8 mls/hr Documented by: [id number] Titration: 04/20/19 09:37 Dose: 10 mcg/kg/min, 6.5 mls/hr Documented by: [id number] Admin: 04/20/19 09:32 Dose: 5 mcg/kg/min, 3.3 mls/hr Documented by: [id number] Cosigned by: [id number] Midazolam HCl (Versed) 125 mg in 250 mls @ 14 mls/hr IV .[id number] [facility]; Protocol Stop: 05/20/19 09:29 Last Titration: 04/21/19 04:17 Dose: 7 mg/hr, 14 mls/hr Documented by: [id number] Admin: 04/21/19 02:35 Dose: 6.5 mg/hr, 13 mls/hr Documented by: [id number] Cosigned by: [id number] Titration: 04/21/19 02:35 Dose: 6.5 mg/hr, 13 mls/hr Documented by: [id number] Cosigned by: [id number] Titration: 04/21/19 00:05 Dose: 6.5 mg/hr, 13 mls/hr Documented by: [id number] Titration: 04/20/19 19:07 Dose: 6 mg/hr, 12 mls/hr Documented by: [id number] Cosigned by: [id number] Titration: 04/20/19 12:14 Dose: 6 mg/hr, 12 mls/hr Documented by: [id number] Titration: 04/20/19 11:30 Dose: 5 mg/hr, 10 mls/hr Documented by: [id number] Titration: 04/20/19 10:30 Dose: 4 mg/hr, 8 mls/hr Documented by: [id number] Titration: 04/20/19 10:00 Dose: 2 mg/hr, 4 mls/hr Documented by: [id number] Admin: 04/20/19 09:34 Dose: 1 mg/hr, 2 mls/hr Documented by: [id number] Cosigned by: [id number] Parenteral Electrolytes (Normosol-R) 1,000 mls @ 80 mls/hr IV .[id number] [facility]OU[facility] Stop: 05/20/19 09:29 Last Admin: 04/20/19 21:56 Dose: 80 mls/hr Documented by: [id number] Infusion: 04/20/19 21:56 Dose: 80 mls/hr Documented by: [id number] Infusion: 04/20/19 19:07 Dose: 80 mls/hr Documented by: [id number] Admin: 04/20/19 09:34 Dose: 80 mls/hr Documented by: [id number] Famotidine 20 mg/ Syringe 5 mls @ 2.5 mls/min IV BID [facility]OUIE Stop: 05/20/19 20:59 Last Admin: 04/20/19 21:54 Dose: 2.5 mls/min Documented by: [id number] Methylprednisolone 80 mg/ (Syringe) 1.28 mls @ 1.5 mls/min IV Q6H [facility] Stop: 05/20/19 13:59 Last Admin: 04/21/19 01:35 Dose: 1.5 mls/min Documented by: [id number] Admin: 04/20/19 19:41 Dose: 1.5 mls/min Documented by: [id number] Admin: 04/20/19 15:19 Dose: 1.5 mls/min Documented by: [id number] Metoprolol Tartrate (Lopressor) 50 mg PO BID LOUIE Stop: 05/20/19 09:44 Last Admin: 04/20/19 20:24 Dose: Not Given Documented by: [id number] Admin: 04/20/19 10:37 Dose: Not Given Documented by: [id number]
--- NOTE | 2019-04-21 06:46 | XRay Report ---
XR chest 1V portable CLINICAL HISTORY: hypoxia dyspnea COMPARISON STUDY: 04/20/2019 FINDINGS: The endotracheal tube remains 6.7 cm superior to the lexie. This again should be advanced. Trace pleural effusion left lung base. Lungs otherwise appear clear. IMPRESSION: Endotracheal tube is 6.7 cm above the lexie and should be advanced. Trace pleural fluid left lung base. ACT 112: Negative or not required by law. The above report was generated using voice recognition software. It may contain grammatical, syntax or spelling errors. Electronically signed by: Jose Mcginnis M.D. 04/21/2019 6:45 AM
[2019-04-21] MEDS ORDERED: ALBUT/IPRATROP 3MG/0.5MG NEB 3 ML VIAL NEB STA (07:21)
--- NOTE | 2019-04-21 07:37 | Critical Care Progress Note ---
Date of Service April 21, 2019 Assessment & Plan (1) Angioedema: Impression: 38-year-old male with hypertension obesity and questionable seizure disorder admitted with angioedema. The tongue appears to be primarily affected. Fortunately the vocal cords and epiglottis do not show any evidence of edema. He was intubated nasotracheally fiberoptically awake upright by anesthesia. 24-hour events: Patient made to the ICU after being urgently intubated awake upright fiberoptic nasotracheally for angioedema. He remained sedated. He did well until early this morning when he developed hypoxemia. There was report of a leak around the endotracheal tube. He had a chest x-ray which again demonstrated the tube to be somewhat high. Anesthesia evaluated the patient with bronchoscopy. The tube remained within the airway. PEEP and FiO2 were slightly increased. Blood gas showed hypercarbic respiratory failure. Recommendations: 1. Angioedema with hypoxemic respiratory failure: Suspect related to lisinopril. Awaiting C1 esterase as well as complement levels. Tongue swelling appears improved today but not resolved. The patient has a difficult airway. The etiology of his hypoxemic respiratory failure is somewhat unclear. He may have some shunt physiology due to atelectasis in the left lower lobe. In addition on exam this morning he has wheezing on that left side. It certainly possible that he could have aspirated although his chest x-ray does not demonstrate a clear infiltrate and he has been afebrile with a normal white blood cell count. His current vent settings preclude extubation. Will provide bronchodilators to see if this offers him some benefit. Continue Benadryl and Pepcid for now although do not suspect they are having a significant impact as this is not an allergic reaction. 2. Airway compromise: Prophylactically intubated. Continue intubation pending improvement in the patient's angioedema. The tube is as advanced as we can make it although it is not an ideal position on the chest x-ray. 3. Hypertension: We will continue the patient's beta-tash. 4. Depression: Holding Lexapro and buspirone for now. 5. Alcohol abuse: The patient is apparently transferred from [facility] rehab. We will continue thiamine folate. Unclear why he was taking Keppra but this will be held for now. May benefit from Precedex if alcohol withdrawal becomes an issue 6. Hypoxemic and hypercarbic respiratory failure: Do not suspect PE given the fact the patient is only been in the hospital short time and is being treated with prophylactic Lovenox. Adjusted ventilator to increase respiratory rate and minute ventilation to see if lowering his PCO2 improves his oxygenation. We will try increasing PEEP to potentially recruit left lower lobe. High probability for sleep disordered breathing and outpatient sleep study would be appropriate. 7. Nutrition: Will need to address tube feeding if unable to extubate next 24 hours. Continue ICU level care until the patient is able to be extubated. 35 minutes critical care time spent evaluating managing patient with life-threatening illness (2) Airway compromise: (3) Hypertension: Subjective Patient is intubated and sedated in the ICU Review of Systems Review of Systems: Unobtainable due to endotracheal tube Physical Exam Constitutional: well developed Eyes: PERRL Neck: trachea midline, no thyromegaly Respiratory: normal respiratory effort, lungs clear to auscultation Cardiovascular: RRR, no murmur, no edema Gastrointestinal (Abdomen): normal bowel sounds, soft, nontender, no hepatosplenomegaly Skin: no rashes, warm and dry Results & Data ([facility]) Vital Signs (Past 12 Hours) Vital Signs Temp Pulse Pulse Resp BP Pulse Ox 04/21/19 07:00 87 90 04/21/19 06:48 88 139/94 91 04/21/19 06:30 78 16 90 04/21/19 06:18 93 H 133/93 90 04/21/19 06:00 90 93 04/21/19 04:57 81 147/96 H 88 L 04/21/19 04:00 36.9 C 81 91 04/21/19 03:00 77 92 04/21/19 02:07 74 16 92 04/21/19 02:00 74 123/77 92 04/21/19 01:00 77 134/88 92 04/21/19 00:41 37.1 C 77 16 143/92 H 92 04/20/19 23:46 74 16 95 04/20/19 23:00 72 138/97 92 04/20/19 22:00 72 125/85 93 04/20/19 21:00 70 144/100 H 94 04/20/19 20:57 71 144/100 H 94 04/20/19 20:26 69 16 92 04/20/19 20:01 36.9 C 70 138/88 93 Laboratory Results 04/21/19 03:56 02/23/20 03:56 Diagnostic Findings Chest x-ray from today was independently reviewed. Slight atelectasis of the left lung base. Tube remains high Coding Level of Care Code Critical Care 1st 30-74 mins Diagnoses Angioedema T78.3XXA Encounter type: initial encounter Airway compromise J98.8 Hypertension I10 Time Spent (min) 35 (1) Angioedema Encounter type: initial encounter Qualified Code(s): T78.3XXA - Angioneurotic edema, initial encounter
[2019-04-21] MEDS: FOLIC ACID 1 MG TAB PO SCH (08:17)
[2019-04-21] MEDS: THIAMINE HCL 100 MG TAB PO SCH (08:17)
[2019-04-21] MEDS: METOPROLOL TARTRATE 50 MG TAB PO SCH ×2 (08:17→20:23)
[2019-04-21] MEDS: FAMOTIDINE 20 MG in SYRINGE 3 ML IV SCH ×2 (08:18→21:28)
[2019-04-21] MEDS: ENOXAPARIN INJ 30 MG/0.3 ML SYR SQ SCH ×2 (08:18→21:28)
[2019-04-21] MEDS: NORMOSOL-R 1,000 ML IV SCH ×2 (10:48→23:16)
--- NOTE | 2019-04-21 12:44 | Hospitalist Progress Note ---
Date of Service April 21, 2019 Assessment & Plan (1) Angioedema: Secondary to lisinopril usage. - Intubated for airway protection - Giving steroids, histamine tash (Benadryl), and H2 tash per ICU team - Improving, though Dr. Cardoza feels he will wait until tomorrow for extubation. (2) Hypertension: BP is 190/100 during intubation. Has history of HTN, but may also be agitation from intubation/discomfort. - Continue beta-tash - Better today at 105/65 while sedated. Will not add his home amlodipine until off sedation. (3) Alcohol use: Per report was in a drug/alcohol rehab facility. - On sedation at present, so withdrawal is not an issue. - On thiamine, folate (4) Polycythemia: Hgb of 18 on admission. Possibly due to smoking. Unclear if he has ever had this before or any prior work-up. - On DVT ppx - Monitor -> Down slightly today. (5) Anxiety: Per indication from his medications. Will need to ensure Keppra is not for any seizure disorder and monitor for seizures once off sedation. - Continue medications as able (6) DVT prophylaxis: Lovenox 30 mg SQ BID Admission and Anticipated Discharge Date Admission Date: April 20, 2019 Subjective Unable to obtain. Review of Systems Review of Systems: Unobtainable due to cognitive status and Unobtainable due to endotracheal tube Physical Exam Constitutional: WD/WN, vitals as above + morbidly obese and + lethargic; no acute distress Eyes: EOM intact bilaterally; no conjunctival abnormality ENMT: external ear and nose normal, oropharynx normal Nose: + external nose abnormality (Nasal intubation) Mouth: + tongue abnormality (Angioedema improving.) Mouth / Teeth: 1. Swollen! Neck: trachea midline, no thyromegaly normal visual inspection Respiratory: normal respiratory effort, lungs clear to auscultation no respiratory distress Cardiovascular: Rate/Rhythm: + tachycardic Heart Sounds: normal S1 and normal S2 Vessels: no JVD Extremities: no edema Gastrointestinal (Abdomen): Inspection/Auscultation: abdomen normal to inspection and + abdomen distended Percussion/Palpation: abdomen soft; abdomen nontender, no guarding and abdomen not rigid Musculoskeletal: no cyanosis or clubbing, extremities motor strength 5/5 Skin: no rashes, warm and dry Neurologic: + does not move all extremities and + not awake Psychiatric: Orientation: cooperative; + not alert and + not oriented to person Results & Data ([facility]) Vital Signs (Past 12 Hours) Vital Signs Temp Pulse Pulse Resp BP Pulse Ox 04/21/19 11:25 36.6 C 75 104/64 91 04/21/19 10:25 78 122/75 93 04/21/19 10:00 81 91 04/21/19 09:57 83 24 90 04/21/19 09:19 84 90 04/21/19 09:18 86 109/64 90 04/21/19 08:48 89 111/66 90 04/21/19 08:18 91 H 116/70 90 04/21/19 08:00 37.0 C 93 H 90 04/21/19 07:48 96 H 123/85 90 04/21/19 07:18 93 H 128/79 90 04/21/19 07:10 90 20 90 04/21/19 07:00 87 90 04/21/19 06:50 20 04/21/19 06:48 88 139/94 91 04/21/19 06:30 78 16 90 04/21/19 06:18 93 H 133/93 90 04/21/19 06:00 90 93 04/21/19 04:57 81 147/96 H 88 L 04/21/19 04:00 36.9 C 81 91 04/21/19 03:00 77 92 04/21/19 02:07 74 16 92 04/21/19 02:00 74 123/77 92 04/21/19 01:00 77 134/88 92 04/21/19 00:41 37.1 C 77 16 143/92 H 92 PG Care Time/CCT Total # of Minutes Spent Total Time Spent with Patient: Total time spent is greater than 50% in coordination of care (as documented) at patient's floor/unit and/or counseling patient: Coding Level of Care Code 54998 Subseq Hosp Care Lvl 3 Diagnoses Angioedema T78.3XXA Encounter type: initial encounter Hypertension I10 Alcohol use Z72.89 Polycythemia D75.1 Anxiety F41.9 DVT prophylaxis Z29.9 (1) Angioedema Encounter type: initial encounter Qualified Code(s): T78.3XXA - Angioneurotic edema, initial encounter
[2019-04-21] MEDS: ALBUT/IPRATROP 3MG/0.5MG NEB 3 ML VIAL NEB SCH ×2 (12:55→19:27)
[2019-04-22] MEDS: propofoL 1,000 MG/100 ML VIAL IV SCH ×9 (00:20→23:53)
[2019-04-22] MEDS: ALBUT/IPRATROP 3MG/0.5MG NEB 3 ML VIAL NEB SCH ×3 (01:20→13:10)
[2019-04-22] MEDS: fentaNYL citrate 100 MCG/2 ML VIAL IV PRN ×3 (02:19→09:15)
[2019-04-22 05:12] LABS: Base Excess ABG 4.4 mEq/L (-9-1.8); HCO3 ABG 29 mmol/L (19-24); PCO2 ABG 41 mmHg (35-46); PO2 ABG 63 mmHg (80-95); pH ABG 7.46 (7.35-7.45)
[2019-04-22 05:16] LABS: Allen Test Pos (Pos)
[2019-04-22 05:18] LABS: Basophils # (auto) 0.01 K/uL (0-0.2); Basophils % (auto) 0.1 %; Hematocrit (blood only) 46.4 % (42-52); Hemoglobin 15.4 g/dL (14.0-18.0); Immature Granulocytes # (auto) 0.02 K/uL (0.00-0.02); Immature Granulocytes % (auto) 0.2 %; Lymphocytes # (auto) 1.66 K/uL (1.2-3.4); Lymphocytes % (auto) 13.8 %; Mean Corpuscular Hemoglobin 34.3 pg (25-34); Mean Corpuscular Hgb Conc 33.2 g/dL (32-36); Mean Corpuscular Volume 103.3 fL (80-100); Mean Platelet Volume 11.2 fL (7.4-10.4); Monocytes # (auto) 1.15 K/uL (0.11-0.59); Monocytes % (auto) 9.6 %; Neutrophils # (auto) 9.16 K/uL (1.4-6.5); Neutrophils % (auto) 76.3 %; Platelet Count 229 K/uL (130-400); RDW Coefficient of Variation 13.6 % (11.5-14.5); RDW Standard Deviation 52.3 fL (36.4-46.3); Red Blood Count 4.49 M/uL (4.7-6.1)
[2019-04-22] MEDS: DiphenhydrAMINE HCL 50 MG/ML VIAL IV SCH (05:35)
[2019-04-22 05:46] LABS: BUN Creatinine Ratio 28.4 (10-20); Calcium 8.6 mg/dl (8.5-10.1); Creatinine Clr Calc Pharmacy 149.1 ml/min; Est GFR (African American) 129.5; Est GFR (Non-African American) 111.7; Potassium 3.7 mmol/L (3.5-5.1)
[2019-04-22 06:12] LABS: Phosphorus 3.7 mg/dl (2.5-4.9); Thyroid Stimulating Hormone 3.11 uIu/ml (0.300-4.500)
--- NOTE | 2019-04-22 06:49 | Critical Care Progress Note ---
Date of Service April 22, 2019 Assessment & Plan (1) Angioedema: Reason Critically Ill: 38 yo M with PMHx of hypertension on lisinopril admitted 04/20 for angioedema localized to the tongue. He was sent to the ICU for worsening respiratory status and prophylactic intubation. 24 hr events: Vent settings were adjusted to address hypercapnia, which has improved. Steroids have been discontinued. Bronchodilators were added. Chest imaging continues to show high placement of endotracheal tube. Patient continues to be sedated on propofol and versed. Neuro: [facility] ICU: negative * Sedated with Propofol at 50mcg/kg/min and versed at 10mg/hr; restraints in place. wean today for SBT following GlideScope procedure * Hx Etoh abuse - patient recently released from rehab at [facility]. continue thiamine and folate supplementation. continue to monitor for withdrawal symptoms, although patient likely outside the window at this point. * Hx depression - continue to hold home lexapro and buspar while sedated Cardiac: * Hypertension: BP currently at goal at 122/78. recommend no further use of lisinopril, as it is the likely cause of his angioedema. we will continue his beta-tash and restart amlodipine when is off sedation * Angioedema - likely secondary to lisinopril use rather than al lergic/anaphylaxis. will d/c Benadryl today. suspect recent increase in lisinopril dose while patient was in rehab, likely provoking stimulus. C1 esterase and complement levels are pending. Respiratory: * Airway compromise: secondary to tongue angioedema. mechanically ventilated for airway protection. Vent on assist control, 24/450/10/60%. we will stop Benadryl as this process is not histamine related. -Will administer 50mg Ketamine and 20mg atomidate for GlideScope procedure to assess for progression of laryngeal edema. plan for SBT after scope. * acute hypoxic, respiratory failure: adjustment in vent settings improved hypercapnia. will order chest CTA and bilateral lower extremity venous duplex to assess for pulmonary embolism. -patient likely has a component of obstructive sleep apnea. would benefit from outpatient sleep study. In the meantime, CPAP overnight while in hospital. * Atelectasis: visualized on left lower lobe on CXR 04/21. Aspiration PNA seems unlikely; white count mildly elevated, patient afebrile. Chest CT may provide further clarification. * Tobacco abuse - encourage cessation; nicoderm patch if he begins to experience cravings while in hospital GI: * will start tube feeds if he remains on vent today * stress ulcer ppx with pepcid (indication: ventilator > 48 hours) RENAL/LYTES: * creatinine WNL * electrolytes WNL * mild metabolic alkalosis * maintenance fluids: Normosol 80mls/hr : * Lino catheter in place - strict I/Os ENDO: * blood sugars around 150. ICU protocol for hyperglycemia. no underlying history of diabetes * TSH normal at 3.1 HEME: * Polycythemia - resolved. Hgb at 15.4 today. may be secondary to tobacco abuse and physiologic increase in hgb in response to carbon monoxide exposure. continue to monitor ID: * Nasal MRSA swab negative * WBC mildly elevated to 12 today; patient afebrile. continue to monitor LINES/IV ACCESS: * Left hand PIV, L AC PIV * Right AC PIV CODE STATUS: Full Code DVT PROPHYLAXIS: Lovenox 30mg, SQ q12h Thank you for allowing us to participate in the care of this patient. Please refer to my attending physician's documentation for any further recommendations. Admission and Anticipated Discharge Date Admission Date: April 20, 2019 Supervising Physician Co-Signing Physician Notes Dr. Hensley was resident physician during care of patient. I separately evaluated patient for omalley portions of the history and the exam. I was present during the critical portion of medical decision making, and I discussed the case with the resident. I generally agree with the findings and plan. After indirect laryngoscopy with video laryngoscope patient was able to be successfully extubated. He continued to clear and was able to cough out his secretions, he is at risk for alcohol withdraw we will treat him with oral phenobarbital as he required heavy sedation requirements for angioedema. Subjective Patient in ICU. Sedated and mechanically ventilated. Review of Systems Review of Systems: Unobtainable due to endotracheal tube Physical Exam Constitutional: WD/WN, vitals as above + mechanically ventilated ENMT: Tongue swollen OG tube in place Neck: normal visual inspection and trachea midline Respiratory: normal respiratory effort, lungs clear to auscultation Cardiovascular: RRR, no murmur, no edema Heart Sounds: normal S1 and normal S2 Gastrointestinal (Abdomen): normal bowel sounds, soft, nontender, no hepatosplenomegaly Musculoskeletal: wearing bilateral SCDs Skin: no rashes, warm and dry Genitourinary: Lino catheter in place draining dark yellow urine with visible sediment Results & Data ([facility]) Vital Signs (Past 12 Hours) Vital Signs Temp Pulse Pulse Resp BP Pulse Ox 04/22/19 06:25 88 122/78 90 04/22/19 05:48 92 H 133/103 H 91 04/22/19 04:00 37.4 C 87 91 04/22/19 03:48 90 24 92 04/22/19 03:25 91 H 119/83 91 04/22/19 02:25 96 H 129/84 91 04/22/19 01:25 86 138/94 92 04/22/19 01:20 82 82 24 93 04/22/19 00:25 37.4 C 85 131/84 93 04/21/19 23:25 86 130/89 92 04/21/19 23:06 86 24 91 04/21/19 22:25 87 124/90 93 04/21/19 21:25 86 122/85 92 04/21/19 21:00 86 91 04/21/19 20:00 37.0 C 94 H 118/70 91 04/21/19 19:27 80 80 24 91 04/21/19 19:00 80 119/80 91 Critical Care Time Critical Care Time: Yes Total Critical Care Time: 45 I have personally spent 45 minutes of critical care time in the direct management of this patient. This is a life/limb threatening event. This includes time spent evaluating patient, direct bedside care, chart review, placing orders, interpretation of diagnostic studies, discussion with consultants, patient, and/or family members regarding treatment decisions, as well as other required patient management activities. This time is exclusive of all separately billable procedures, and teaching time and separate from and in addition to any other critical care service time. Resident Activity Tracking Resident Involvement: Resident Care Provided Care Provided: Adult Hospital Medicine (1) Angioedema Encounter type: initial encounter Qualified Code(s): T78.3XXA - Angioneurotic edema, initial encounter
[2019-04-22] MEDS: MIDAZOLAM HCL 125 MG/250 ML BAG IV SCH ×2 (07:44→09:15)
[2019-04-22] MEDS: THIAMINE HCL 100 MG TAB PO SCH (07:46)
[2019-04-22] MEDS: METOPROLOL TARTRATE 50 MG TAB PO SCH ×2 (07:46→20:44)
[2019-04-22] MEDS: FOLIC ACID 1 MG TAB PO SCH (07:46)
[2019-04-22] MEDS ORDERED: THIAMINE HCL 100 MG TAB PO SCH (09:00)
[2019-04-22] MEDS ORDERED: FOLIC ACID 1 MG TAB PO SCH (09:00)
[2019-04-22] MEDS: FAMOTIDINE 20 MG in SYRINGE 3 ML IV SCH ×2 (09:15→20:44)
[2019-04-22] MEDS: ENOXAPARIN INJ 30 MG/0.3 ML SYR SQ SCH ×2 (09:24→20:45)
[2019-04-22] MEDS ORDERED: OPTIRAY 320 125ml IV PRN (11:03)
--- NOTE | 2019-04-22 11:21 | CT Scan Report ---
CT angio chest PE protocol CT DOSE: 513.68 mGycm HISTORY: Chest pain. Dyspnea. rule out PE TECHNIQUE: Multiaxial CT images of the chest were performed following the intravenous administration of contrast to evaluate the pulmonary arteries. Maximal intensity projection images were also obtaine d. A dose lowering technique was utilized adhering to the principles of ALARA. COMPARISON STUDY: None. FINDINGS: The thoracic aorta is normal in course and caliber. Pulmonary vasculature enhances appropriately. There are no major filling defects. There are findings of atelectatic change in volume loss of the lower lobe regions bilaterally. Small scattered parenchymal infiltrative changes lateral aspect right upper lobe is also present. IMPRESSION: 1. This exam is negative for pulmonary embolus. 2. Bilateral lower lobe atelectatic/consolidative change. 3. Small parenchymal infiltrate peripheral aspect right upper lobe. ACT 112: Negative or not required by law. The above report was generated using voice recognition software. It may contain grammatical, syntax or spelling errors. Electronically signed by: Jose Mcginnis M.D. 04/22/2019 11:20 AM
[2019-04-22] MEDS ORDERED: SUCCINYLCHOLINE CHLORIDE 20 MG/ML 10 ML VIAL IV STA (12:22)
[2019-04-22] MEDS ORDERED: MIDAZOLAM HCL 5 MG/ML VIAL IV STA (12:22)
[2019-04-22] MEDS ORDERED: RAPID SEQUENCE INDUCTION BAG ONE (12:41)
[2019-04-22] MEDS: NORMOSOL-R 1,000 ML IV SCH (13:03)
[2019-04-22] MEDS ORDERED: LORazepam 1 MG TAB PO PRN (14:18)
[2019-04-22] MEDS ORDERED: ALBUT/IPRATROP 3MG/0.5MG NEB 3 ML VIAL NEB PRN (18:21)
--- NOTE | 2019-04-22 18:33 | Procedure Note ---
Procedure Note Date of Service April 22, 2019 Procedure Date: Noted above Procedure: Video laryngoscopy Indication: Angioedema Post-procedure Diagnosis: Resolution of angioedema Performing provider: Wesley Doe DO The identity of the patient was confirmed and a bedside time out was performed. Description of Procedure: Utilizing a glide scope #4 blade I was able to visualize the epiglottis as well as the endotracheal tube passing into the vocal cords. The glottic opening has sharp borders, clearly visible arytenoids, no significant edema, the posterior pharynx and soft palate show no signs of edema Complications: None Findings: Resolution of angioedema Specimens: Not applicable Estimated blood loss: Zero Coding CPT Codes ENT - ENT: 70919 Indrect Laryngoscopy,diagnostic ([id number]) [facility] – [place], [place] Procedure Codes (Charges) ENT ENT: 14298 Indrect Laryngoscopy,diagnostic
--- NOTE | 2019-04-22 18:33 | Billing Data ---
Date of Service April 22, 2019 Coding Level of Care Code Critical Care 1st - mins
[2019-04-22] MEDS ORDERED: ACETAMINOPHEN 325 MG TAB PO PRN (18:39)
--- NOTE | 2019-04-22 21:25 | Hospitalist Progress Note ---
Date of Service April 22, 2019 Assessment & Plan (1) Angioedema: Secondary to lisinopril usage. - Intubated for airway protection - Giving steroids, histamine tash (Benadryl), and H2 tash per ICU team - Improving, ICU team is unsure if they will extubate patient later today. Still rounding. Update: Patient was extubated later in the day. Wll monitor overnight in ICU. (2) Hypertension: BP is 190/100 during intubation. Has history of HTN, but may also be agitation from intubation/discomfort. - Continue beta-tash - Better today at 105/65 while sedated. Will not add his home amlodipine until off sedation. (3) Alcohol use: Per report was in a drug/alcohol rehab facility. - On sedation at present, so withdrawal is not an issue. - On thiamine, folate (4) Polycythemia: Hgb of 18 on admission. Possibly due to smoking. Unclear if he has ever had this before or any prior work-up. - On DVT ppx - Monitor -> hemoglobin now down to 15 (5) Anxiety: Per indication from his medications. Will need to ensure Keppra is not for any seizure disorder and monitor for seizures once off sedation. - Continue medications as able (6) DVT prophylaxis: Lovenox 30 mg SQ BID Admission and Anticipated Discharge Date Admission Date: April 20, 2019 unclear discharge date. Subjective 38 yo male is intubated and sedated. Unable to obtain more history. Review of Systems Review of Systems: Unobtainable due to endotracheal tube Physical Exam Physical Exam: Constitutional: WD/WN, vitals as above + morbidly obese and sedated. intubated no acute distress Eyes: EOM intact bilaterally; no conjunctival abnormality ENMT: external ear and nose normal, Neck: trachea midline, no thyromegaly normal visual inspection Respiratory: normal respiratory effort, lungs clear to auscultation no respiratory distress Cardiovascular: Rate/Rhythm: RRR, Heart Sounds: normal S1 and normal S2 Vessels: no JVD Extremities: no edema Gastrointestinal (Abdomen): Inspection/Auscultation: abdomen normal to inspec tion and + abdomen distended Percussion/Palpation: abdomen soft; abdomen nontender, no guarding and abdomen not rigid Musculoskeletal: no cyanosis or clubbing, extremities motor strength 5/5 Skin: no rashes, warm and dry Neurologic: + does not move all extremities and + not awake Psychiatric: Orientation: cooperative; + not alert and + not oriented to person Results & Data ([facility]) Vital Signs (Past 12 Hours) Vital Signs Temp Pulse Resp BP Pulse Ox 04/22/19 17:48 108 H 24 160/88 H 90 04/22/19 16:05 37.2 C 113 H 27 H 91 04/22/19 16:04 112 H 23 135/85 90 04/22/19 14:12 114 H 23 142/82 H 90 04/22/19 13:26 92 H 90 04/22/19 13:25 89 135/82 90 04/22/19 12:51 82 138/89 91 04/22/19 12:42 84 120/71 91 04/22/19 12:25 86 115/71 92 04/22/19 12:00 38.0 C H 89 92 04/22/19 11:46 92 H 24 92 04/22/19 11:25 85 139/86 100 04/22/19 10:25 74 117/70 91 04/22/19 10:00 76 88 L PG Care Time/CCT Total # of Minutes Spent Total Time Spent with Patient: Total time spent is greater than 50% in coordination of care (as documented) at patient's floor/unit and/or counseling patient: Coding Level of Care Code 59252 Subseq Hosp Care Lvl 3 Diagnoses Angioedema T78.3XXA Encounter type: initial encounter Hypertension I10 Alcohol use Z72.89 Polycythemia D75.1 Anxiety F41.9 DVT prophylaxis Z29.9 Time Spent (min) 35 (1) Angioedema Encounter type: initial encounter Qualified Code(s): T78.3XXA - Angioneurotic edema, initial encounter
[2019-04-23 05:05] LABS: Basophils # (auto) 0.02 K/uL (0-0.2); Basophils % (auto) 0.2 %; Eosinophils # (auto) 0.09 K/uL (0-0.5); Eosinophils % (auto) 0.9 %; Hematocrit (blood only) 45.9 % (42-52); Hemoglobin 15.1 g/dL (14.0-18.0); Immature Granulocytes # (auto) 0.04 K/uL (0.00-0.02); Immature Granulocytes % (auto) 0.4 %; Lymphocytes # (auto) 1.45 K/uL (1.2-3.4); Lymphocytes % (auto) 14.1 %; Mean Corpuscular Hemoglobin 33.7 pg (25-34); Mean Corpuscular Hgb Conc 32.9 g/dL (32-36); Mean Corpuscular Volume 102.5 fL (80-100); Mean Platelet Volume 11.6 fL (7.4-10.4); Monocytes # (auto) 1.33 K/uL (0.11-0.59); Monocytes % (auto) 12.9 %; Neutrophils # (auto) 7.39 K/uL (1.4-6.5); Neutrophils % (auto) 71.5 %; Platelet Count 184 K/uL (130-400); RDW Coefficient of Variation 13.6 % (11.5-14.5); RDW Standard Deviation 51.2 fL (36.4-46.3); Red Blood Count 4.48 M/uL (4.7-6.1); White Blood Count 10.32 K/uL (4.8-10.8)
[2019-04-23 05:36] LABS: BUN Creatinine Ratio 19.6 (10-20); Calcium 8.8 mg/dl (8.5-10.1); Creatinine Clr Calc Pharmacy 180.1 ml/min; Est GFR (African American) 140.2; Est GFR (Non-African American) 120.9; Magnesium 2.1 mg/dl (1.8-2.4); Phosphorus 2.9 mg/dl (2.5-4.9); Potassium 3.3 mmol/L (3.5-5.1)
[2019-04-23] MEDS ORDERED: POTASSIUM CHLORIDE 20 MEQ TABCR PO STA (05:48)
--- NOTE | 2019-04-23 06:19 | Critical Care Progress Note ---
Date of Service April 23, 2019 Assessment & Plan (1) Angioedema: Reason Critically Ill: 38 yo M with PMHx of hypertension on lisinopril admitted 04/20 for angioedema localized to the tongue. He was sent to the ICU for worsening respiratory status and prophylactic intubation. 24 hr events: Sedation was weaned and patient was successful extubated. BiPAP was used overnight, but he is currently saturating well on 6L via NC. His tongue swelling continues to improve. Patient demonstrated symptoms consistent with withdrawal and was started on a Phenobarbital taper. Patient is stable and ready for medical downgrade. Neuro: [facility] ICU: negative * Hx Etoh abuse - prior to admission patient was at [facility] rehab. He checked himself in on 04/09/19 and was supposed to be there for 30 days, however this was cut short by his hospitalization. continue thiamine and folate supplementation. Patient was started on oral Phenobarbital 04/22 for agitation symptoms thought to be consistent with withdrawal. Not requiring any benzo doses thus far. bedside swallow today, speech consult. PT/OT ordered today. * Hx depression - restart home lexapro and buspar Cardiac: * Hypertension: BP above goal at 157/98. recommend no further use of lisinopril, as it is the likely cause of his angioedema. we will continue current dose of metoprolol tartrate and restart home amlodipine today. tomorrow recommended resuming home dose of metoprolol succinate. * Angioedema - resolving. likely secondary to lisinopril use rather than allergic/anaphylaxis. suspect recent increase in lisinopril dose while patient was in rehab, likely provoking stimulus. C1 esterase and complement levels are pending. Respiratory: * Airway compromise: secondary to tongue angioedema. patient has been successfully extubated. Saturating well on 6L via NC. Wean O2 as tolerated * acute hypoxic, respiratory failure: chest CTA 04/22 showed no evidence of a pulmonary embolism. likely secondary to airway compromise as above. -patient likely has a component of obstructive sleep apnea. would benefit from outpatient sleep study. In the meantime, CPAP overnight while in hospital. * Atelectasis: Chest CT from 04/22 showing bilateral lower lobar atelectasis. Parenchymal infiltrate was also visualized in R upper lobe. CXR 04/23 showing persistent bibasilar consolidation. Aspiration PNA possible given history of alcoholism, O2 requirement and fever 04/22. Although patient is afebrile today and WBC normal, we will initiate treatment with 7 day course of Cleocin given risk factors. Will order incentive spirometer and flutter valve. * Tobacco abuse - encourage cessation; nicoderm patch ordered GI: * patient tolerating clear liquid sips with pills; advance diet as tolerated * stress ulcer ppx with pepcid (indication: ventilator > 48 hours) RENAL/LYTES: * creatinine WNL * K was low at 3.3; replaced with 20Meq PO, 10meq IV rider. All other electrolytes WNL * maintenance fluids discontinued as patient is beginning to tolerate PO intake : * marcum removed, patient voiding spontaneously ENDO: * blood sugars 100-190. ICU protocol for hyperglycemia. no underlying history of diabetes * TSH normal at 3.1 HEME: * Polycythemia - resolved. Hgb at 15.1 today. may be secondary to tobacco abuse and physiologic increase in hgb in response to carbon monoxide exposure. continue to monitor ID: * Chest imaging revealing bibasilar consolidation, and R upper lobe patchy infiltrate. Patient does have a productive cough, although he is a tobacco user. Afebrile today with normal WBC count, however given his history of alcoholism, current O2 requirement and his fever yesterday, we will treat with 7 day course of Cleocin. * Nasal MRSA swab negative LINES/IV ACCESS: * Left hand PIV, L AC PIV * Right AC PIV CODE STATUS: Full Code DVT PROPHYLAXIS: Lovenox 30mg, SQ q12h Thank you for allowing us to participate in the care of this patient. Please refer to my attending physician's documentation for any further recommendations. Admission and Anticipated Discharge Date Admission Date: April 20, 2019 Supervising Physician Co-Signing Physician Notes Dr. Hensley was resident physician during care of patient. I separately evaluated patient for omalley portions of the history and the exam. I was present during the critical portion of medical decision making, and I discussed the case with the resident. I generally agree with the findings and plan. Patient has remained extubated for 24 hours, still has small oxygen requirement, he does not wear oxygen at baseline. In light of the CT findings of rather significant atelectasis patient is stable for downgrade out of the ICU. We have aggressive pulmonary toilet therapy and starting 1 dose of IV clindamycin as well as transitioning to 7 days with clindamycin for possible aspiration pneumonia. He did have a febrile episode yesterday. Subjective Patient in ICU. Denies any new complaints. Review of Systems Review of Systems: All systems reviewed & are unremarkable except as noted in HPI & below Ear, Nose, Mouth, Throat: + sore throat Respiratory: + cough Physical Exam Constitutional: WD/WN, vitals as above Eyes: + anicteric sclerae ENMT: external ear and nose normal, oropharynx normal Mouth: no tongue abnormality Neck: normal visual inspection and trachea midline Respiratory: normal respiratory effort; no respiratory distress Auscultation: + wheezes (expiratory wheezes appreciated throughout ); no crackles, no rales, no rhonchi and no pleural rub Cardiovascular: RRR, no murmur, no edema Heart Sounds: normal S1 and normal S2 Gastrointestinal (Abdomen): normal bowel sounds, soft, nontender, no hepatosplenomegaly Musculoskeletal: Extremities: + hand abnormality Right (missing two fingers) Skin: no rashes, warm and dry Psychiatric: A+Ox3, euthymic affect Results & Data ([facility]) Vital Signs (Past 12 Hours) Vital Signs Temp Pulse Resp BP Pulse Ox 04/23/19 04:10 80 04/23/19 02:03 80 21 157/98 H 87 L 04/23/19 02:00 82 13 90 04/23/19 01:02 78 25 H 165/97 H 93 04/23/19 01:00 79 26 H 93 04/23/19 00:49 78 26 H 94 04/23/19 00:05 83 04/23/19 00:02 37 C 81 21 142/77 H 94 04/23/19 00:00 81 30 H 93 04/22/19 23:20 84 28 H 94 04/22/19 23:02 86 25 H 143/88 H 96 04/22/19 23:00 86 26 H 94 04/22/19 22:00 86 18 95 04/22/19 21:40 87 20 94 04/22/19 21:02 102 H 31 H 172/93 H 92 04/22/19 20:00 36.9 C 110 H 23 89 L 04/22/19 19:02 110 H 21 177/87 H 88 L Resident Activity Tracking Resident Involvement: Resident Care Provided Care Provided: Adult Hospital Medicine (1) Angioedema Encounter type: initial encounter Qualified Code(s): T78.3XXA - Angioneurotic edema, initial encounter
[2019-04-23] MEDS: propofoL 1,000 MG/100 ML VIAL IV SCH ×2 (06:21→06:55)
[2019-04-23] MEDS: POTASSIUM CHLORIDE / WTR 10 MEQ/100 ML PLCT IV SCH ×2 (06:21→07:39)
--- NOTE | 2019-04-23 06:51 | XRay Report ---
XR chest 1V portable HISTORY: 38 years-old Male f/u follow-up study in a patient with recent respiratory failure COMPARISON: Chest radiograph 04/21/2019, CTA chest 04/22/2019 TECHNIQUE: AP view of the chest FINDINGS: Status post extubation. Cardiac silhouette is mildly enlarged. Bibasilar consolidative opacities. Unc hanged from comparison CT and have progressed from comparison chest radiograph 7. No pneumothorax, la rge pleural effusion or overt pulmonary edema. Bones of the chest appear grossly intact. IMPRESSION: 1. Status post extubation. 2. Bibasilar consolidation suggestive of pneumonia versus aspiration pneumonitis redemonstrated. ACT 112: Negative or not required by law. The above report was generated using voice recognition software. It may contain grammatical, syntax o r spelling errors. Electronically signed by: Sincere Villatoro M.D. 04/23/2019 6:50 AM
[2019-04-23] MEDS: METOPROLOL TARTRATE 50 MG TAB PO SCH ×2 (07:41→21:46)
[2019-04-23] MEDS: THIAMINE HCL 100 MG TAB PO SCH (07:42)
[2019-04-23] MEDS ORDERED: CHLORASEPTIC 1.4% SOLN 180 ML BTL MT PRN (07:42)
[2019-04-23] MEDS: FOLIC ACID 1 MG TAB PO SCH (07:42)
[2019-04-23] MEDS ORDERED: CLINDAMYCIN 900 MG in DEXTROSE 5% 50 ML IV ONE (09:00)
[2019-04-23] MEDS: ENOXAPARIN INJ 30 MG/0.3 ML SYR SQ SCH ×2 (09:50→21:46)
[2019-04-23] MEDS: FAMOTIDINE 20 MG in SYRINGE 3 ML IV SCH (11:10)
[2019-04-23] MEDS: NICOTINE 14 MG/24 HR PATCH TD SCH (11:10)
--- NOTE | 2019-04-23 12:47 | Billing Data ---
Date of Service April 23, 2019 Coding Level of Care Code 77526 Subseq Hosp Care Lvl 3
[2019-04-23] MEDS: ESCITALOPRAM OXALATE 10 MG TAB PO SCH (13:07)
[2019-04-23] MEDS: FAMOTIDINE 40 MG TABLET PO SCH (13:07)
[2019-04-23] MEDS: CLINDAMYCIN HCL 150 MG CAP PO SCH ×3 (13:07→23:39)
[2019-04-23] MEDS: AMLODIPINE BESYLATE 5 MG TAB PO SCH (13:08)
[2019-04-23 14:40] LABS: Complement C3 162 mg/dL (82-185); Complement Total(CH50) >60 U/mL (31-60)
[2019-04-23] MEDS ORDERED: IBUPROFEN 800 MG TAB PO STA (17:10)
[2019-04-23 19:04] LABS: C1 Esterase Inhibitor 41 mg/dL (21-39)
--- NOTE | 2019-04-23 22:47 | Hospitalist Progress Note ---
Date of Service April 23, 2019 Assessment & Plan (1) Angioedema: Extubated . Still requiring oxygen. Will continue to monitor. (2) Hypertension: resumed BP meds. BP is at goal. (3) Alcohol use: Per report was in a drug/alcohol rehab facility. - On sedation at present, so withdrawal is not an issue. - On thiamine, folate (4) Polycythemia: Hgb of 18 on admission. Possibly due to smoking. Unclear if he has ever had this before or any prior work-up. - On DVT ppx - Monitor -> hemoglobin now down to 15 (5) Anxiety: Per indication from his medications. Will need to ensure Keppra is not for any seizure disorder and monitor for seizures once off sedation. - Continue medications as able (6) DVT prophylaxis: Lovenox 30 mg SQ BID (7) Effusion of knee joint right: will consult ortho. Gave patient high dose NSAID for one dose. Will monitor. diff diagnosis: infection vs inflammatory. will need arthrocenthesis. Admission and Anticipated Discharge Date Admission Date: April 20, 2019 Subjective Patient reports feeling well. His main complaint is that he noticed his right knee has swelled up. He is concerned that he was thrashing during the time he was intubated and this may have caused an injury. He states that a motnh or so earlier, he states that he had swelling in his contralateral KNEE. He denies nay tick bites, sick contacts. Review of Systems Review of Systems: All systems reviewed & are unremarkable except as noted in HPI & below Physical Exam Physical Exam: Constitutional: WD/WN, vitals as above + morbidly obese and sedated. intubated no acute distress Eyes: EOM intact bilaterally; no conjunctival abnormality ENMT: external ear and nose normal, Neck: trachea midline, no thyromegaly normal visual inspection Respiratory: normal respiratory effort, lungs clear to auscultation no respiratory distress Cardiovascular: Rate/Rhythm: RRR, Heart Sounds: normal S1 and normal S2 Vessels: no JVD Extremities: no edema Gastrointestinal (Abdomen): Inspection/Auscultation: abdomen normal to inspection and + abdomen distended Percussion/Palpation: abdomen soft; abdomen nontender, no guarding and abdomen not rigid Musculoskeletal: no cyanosis or clubbing, extremities motor strength 5/5, swelling of right knee. Skin: no rashes, warm and dry Neurologic: + does not move all extremities and + not awake Psychiatric: Orientation: cooperative; + not alert and + not oriented to person Results & Data ([facility]) Vital Signs (Past 12 Hours) Vital Signs Temp Pulse Pulse Pulse Resp BP BP 04/23/19 21:44 76 135/85 04/23/19 16:13 04/23/19 15:13 37.1 C 79 17 147/83 H 04/23/19 13:25 37.0 C 80 14 146/94 H 04/23/19 11:03 76 21 142/125 H 04/23/19 11:02 Pulse Ox 04/23/19 21:44 04/23/19 16:13 95 04/23/19 15:13 04/23/19 13:25 92 04/23/19 11:03 94 04/23/19 11:02 90 PG Care Time/CCT Total # of Minutes Spent Total Time Spent with Patient: Total time spent is greater than 50% in coordination of care (as documented) at patient's floor/unit and/or counseling patient: Coding Level of Care Code 00738 Subseq Hosp Care Lvl 3 Diagnoses Angioedema T78.3XXA Encounter type: initial encounter Hypertension I10 Alcohol use Z72.89 Polycythemia D75.1 Anxiety F41.9 DVT prophylaxis Z29.9 Effusion of knee joint right M25.461 Time Spent (min) 35 (1) Angioedema Encounter type: initial encounter Qualified Code(s): T78.3XXA - Angioneurotic edema, initial encounter
[2019-04-24] MEDS: CLINDAMYCIN HCL 150 MG CAP PO SCH ×4 (05:01→23:10)
[2019-04-24] MEDS: NICOTINE 14 MG/24 HR PATCH TD SCH ×3 (09:08→17:48)
[2019-04-24] MEDS: ENOXAPARIN INJ 30 MG/0.3 ML SYR SQ SCH ×2 (09:08→21:35)
[2019-04-24] MEDS: FOLIC ACID 1 MG TAB PO SCH (09:09)
[2019-04-24] MEDS: METOPROLOL SUCC 50MG EXT REL TAB PO SCH (09:09)
[2019-04-24] MEDS: THIAMINE HCL 100 MG TAB PO SCH (09:10)
[2019-04-24] MEDS: FAMOTIDINE 40 MG TABLET PO SCH (09:10)
[2019-04-24] MEDS: AMLODIPINE BESYLATE 5 MG TAB PO SCH (09:10)
[2019-04-24] MEDS: ESCITALOPRAM OXALATE 10 MG TAB PO SCH (09:10)
[2019-04-24 09:11] LABS: BUN Creatinine Ratio 18.4 (10-20); Est GFR (African American) 147.8; Est GFR (Non-African American) 127.5; Magnesium 1.9 mg/dl (1.8-2.4); Potassium 3.7 mmol/L (3.5-5.1)
[2019-04-24 09:25] LABS: Phosphorus 3.7 mg/dl (2.5-4.9)
--- NOTE | 2019-04-24 09:31 | Orthopedic Consultation ---
Date of Consultation April 24, 2019 Assessment & Plan (1) Effusion of knee joint right: Pt does not examine as typical infection. He has been essentially afeb (except once 38 on the ) since admission. Possible hemarthosis vs inflamatory. Pt states that H/O right knee swelling in past with no apparent injury. Will obtain x-rays of the right knee. Plan for aspiration of the right knee after x-rays been reviewed. We will send any aspirate obtained for cell count, crystal analysis, and culture. Case discussed with Dr. Acevedo. He is in agreement to undergo aspiration after x-rays have been reviewed. Supervising Physician Co-Signing Physician Notes The patient was seen and examined this a.m. status post right knee arthrocentesis. Reports improvement in pain and range of motion in his right knee. Aspiration results negative for infection positive for crystals.Patient also reporting left foot and ankle pain reports rolling his ankle 2 weeks prior. Physical exam the right knee, Neurovascular sensory intact grossly, demonstrates mild effusion and moderate swelling, full range of motion with decreased pain, +2 dorsalis pedis pulse, no erythema A/P Right knee gouty attack, no surgical intervention, continue with conservative treatments ice, elevation, anti-inflammatories, gout treatment will defer gout treatment to medical team. Left foot and ankle clinical exam suggest sprain, ice, elevation, continue anti- inflammatories, will obtain x-rays of left foot and ankle, weightbearing status pending x-ray results. History of Present Illness Reason for Consultation: Right knee pain/swelling Attending Physician: Edward Barnes History of Present Illness Patient is a 38-year-old white male who was admitted to the hospital several days ago with angioedema secondary to lisinopril use. Patient had been intubated for safety due to airway compromise. History of hypertension, anxiety, polycythemia, alcohol abuse which [facility]. He apparently had an episode of increasing high blood pressure. He had already had his lower dose of lisinopril and was given 1 more dose of lisinopril to help with his blood pressure. He was sent to the emergency room with angioedema. With his deteriorating respiratory status, he consented to intubation for his safety. He was extubated after market improvement and has now been sent to the [facility] floor. He states that he was having pain in his knee and noticed that he had some moderate swelling. He states that he does not remember injuring the knee but woke up with the swollen day. He states that during his time of intubation, his family stated that he was quite combative and wrenching around. He is wondering if he injured his knee in someway during this time. Currently he is lying in bed awake and alert. He is in no acute distress. He states that the knee does hurt whenever he bends it. He denies fevers or chills at this time. Denies nausea or vomiting. Patient relates a history of having to have the knee drained many years ago by an equipment sales specialist in [place]. He has not had any problems with the knee since that time. We have been asked to see him for his right knee pain and swelling. Allergies Allergy/AdvReac Type Severity Reaction Status Date / Time HOLLAND Inhibitors Allergy Severe Angioedema Verified 04/20/19 10:43 Penicillins Allergy Mild Unknown Unverified 04/20/19 08:41 Sulfa (Sulfonamide Allergy Mild Unknown Unverified 04/20/19 08:41 Antibiotics) Home Medications Home Medications Medication Instructions Recorded Confirmed Type amlodipine [Norvasc] 10 mg PO HS 04/20/19 04/20/19 History buspirone 10 mg PO DAILY@1700 04/20/19 04/20/19 History escitalopram oxalate [Lexapro] 10 mg PO DAILY@1700 04/20/19 04/20/19 History fluticasone propionate [Flovent 2 puff INHALATION BID 04/20/19 04/20/19 History HFA] folic acid 1 mg PO UD 04/20/19 04/20/19 History levetiracetam [Keppra] 500 mg PO UD 04/20/19 04/20/19 History lisinopril 20 mg PO BID 04/20/19 04/20/19 History metoprolol succinate 100 mg PO DAILY 04/20/19 04/20/19 History multivitamin 1 tab PO DAILY 04/20/19 04/20/19 History omeprazole 40 mg PO DAILY 04/20/19 04/20/19 History prednisone 50 mg PO UD 04/20/19 04/20/19 History thiamine HCl (vitamin B1) 100 mg PO UD 04/20/19 04/20/19 History Patient History Medical History Allergy to penicillin Allergy to sulfa drugs Hypertension Family History Other Unknown family medical history Social History Preferred Language: Panamanian Communication Ability: Unable Nutrition Assistant Required: No Beliefs That Will Affect Care: None marital status: Current Living Situation: Spouse Other Information That Helps Us Care for You: No Feels Safe at Home: Yes Smoking Status: Current every day smoker Tobacco Type: cigarettes ; Cigarettes Per Day: 20 ; Do You Dip or Chew Tobacco: No ; Tobacco Cessation Education Requested by Patient: No Hx Alcohol Use: Yes Hx Substance Use: No Review of Systems Review of Systems: All systems reviewed & are unremarkable except as noted in HPI & below Constitutional: as per Subjective / HPI Physical Exam Physical Exam: On examination, the patient is a well-developed, well- nourished, white male, who is alert and oriented x3. He is in no acute distress, pleasant and cooperative. He does not appear uncomfortable. On examination of his right knee, compared to the left there is a noticeable effusion. He has no overt erythema over the right knee and there is no intense heat noted on palpation. Moderate effusion noted on palpation but not tense. Patient does not have pain on palpation of the knee at this time. He has no pain at the medial or lateral joint line. He is able to extend the knee at this time without difficulty. He may have a slight 4 to 5 degree flexion discrepancy and not fully extended compared to the left knee. Medial and lateral collateral ligaments are stable and are nontender on palpation. Anterior drawer sign is essentially within normal limits. He is able to ac tively flex the knee to approximately 110 degrees before stopping stating that it was starting to hurt. He shows no signs of it being excruciating during the flexion process. He is then able to bring the knee out of flexion into extension without difficulty. He states he is not having difficulty ambulating and PT notes from yesterday show that he had ambulated from room 103 to his current room on the third floor without difficulty with a walker. He denies any radiculopathy. Denies any decreased sensation in the right lower extremity to the foot. NV intact. He has a strong dorsalis pedis pulse. Capillary refill is less than 2 seconds. Results & Data ([facility]) Vital Signs (Past 12 Hours) Vital Signs Temp Pulse Pulse Pulse Resp BP Pulse Ox 04/24/19 07:49 36.9 C 75 12 150/90 H 90 04/23/19 23:10 36.8 C 73 16 131/74 94 04/23/19 21:44 76 135/85
[2019-04-24] MEDS ORDERED: methylPREDNISolone acetate 80 MG/ML VIAL IA ONE (10:48)
[2019-04-24] MEDS ORDERED: ETHYL CHLORIDE AER PER SPRAY 100 ML CAN EXT ONE (10:53)
[2019-04-24] MEDS ORDERED: BUPIVACAINE/EPINEPHRINE 0.25% 1:200,000 30 ML VIAL INFIL ONE (10:53)
--- NOTE | 2019-04-24 11:01 | XRay Report ---
RIGHT KNEE 2 VIEWS HISTORY: Right Knee Pain COMPARISON: None. FINDINGS: There is no fracture or dislocation. Large suprapatellar knee effusion. Prepatellar soft ti ssue swelling. Cartilage spaces are maintained. No radiopaque foreign bodies. IMPRESSION: 1. Large suprapatellar knee effusion. 2. No fractures. ACT 112: Negative or not required by law. Electronically signed by: James Ceja M.D. 04/24/2019 10:59 AM
--- NOTE | 2019-04-24 13:03 | Communication Note ---
Date of Service: April 24, 2019 X-rays were reviewed by myself and Dr. Acevedo. Results as below. (Of note, patient denies any history of tick bites that he can remember. He states he did have one on him but it had not yet attached.)I discussed with the patient about aspiration of the right knee. He states he has had this before and he is in agreement. Verbal consent was obtained and at that time. An area was marked on the superolateral aspect of the right knee. This area was cleansed with 2 alcohol swabs and 3 Betadine swabs and was let the dry. Ethyl chloride was then used to anesthetize the skin. An 18-gauge needle was then inserted into the site that was marked and a total of 61 cc of cloudy yellow fluid was removed. When no further fluid could be aspirated, the needle was removed and pressure was applied to the aspiration site for approximately a minute. The aspiration site was then covered with a Band-Aid. Patient tolerated the procedure quite well and did feel relief after having the fluid aspirated. Plans will be to send the aspiration fluid for cell count with differential, crystal analysis, and aerobic/ anaerobic culture. Depending on results, patient could have a steroid injection if he continues to have pain. For now would recommend Lidoderm patch to the right knee and eZY wrap ice pack. Patient may be ambulation as tolerated currently with walker. RIGHT KNEE 2 VIEWS HISTORY: Right Knee Pain COMPARISON: None. FINDINGS: There is no fracture or dislocation. Large suprapatellar knee effusion. Prepatellar soft tissue swelling. Cartilage spaces are maintained. No radiopaque foreign bodies. IMPRESSION: 1. Large suprapatellar knee effusion. 2. No fractures.
[2019-04-24 13:49] LABS: Appearance Synovial Fluid CLOUDY; Color Synovial Fluid YELLOW; Mononuclear WBC Synovial 12.3 %; Polynuclear WBC Synovial 87.7 %; RBC Synovial Fluid (A) < 3000 /uL; Source Synovial Fluid KNEE; WBC Synovial Fluid (A) 19389 /ul (0-200)
[2019-04-24] MEDS: INDOMETHACIN 25 MG CAP PO SCH (17:41)
[2019-04-24] MEDS ORDERED: Nursing to Pharmacy Communication ONE (21:22)
--- NOTE | 2019-04-24 21:58 | Hospitalist Progress Note ---
Date of Service April 24, 2019 Assessment & Plan (1) Angioedema: Extubated . Now on room air. Will continue to monitor. (2) Hypertension: resumed BP meds. BP is at goal. (3) Alcohol use: Per report was in a drug/alcohol rehab facility. - On sedation at present, so withdrawal is not an issue. - On thiamine, folate (4) Polycythemia: Hgb of 18 on admission. Possibly due to smoking. Unclear if he has ever had this before or any prior work-up. - On DVT ppx - Monitor -> hemoglobin now down to 15 (5) Anxiety: Per indication from his medications. Will need to ensure Keppra is not for any seizure disorder and monitor for seizures once off sedation. - Continue medications as able (6) DVT prophylaxis: Lovenox 30 mg SQ BID (7) Effusion of knee joint right: Appears to be gout. Awaiting cultures. Placed on NSAID. Indocin 50 mg po TID Admission and Anticipated Discharge Date Admission Date: April 20, 2019 Subjective Patient reports breathing better.Patient states his knee pain has improved after knee drainage. Patient is unsure if he wants to return to rehab or not. Review of Systems Review of Systems: All systems reviewed & are unremarkable except as noted in HPI & below Physical Exam Physical Exam: Constitutional: WD/WN, vitals as above + morbidly obese and sedated. intubated no acute distress Eyes: EOM intact bilaterally; no conjunctival abnormality ENMT: external ear and nose normal, Neck: trachea midline, no thyromegaly normal visual inspection Respiratory: normal respiratory effort, lungs clear to auscultation no respiratory distress Cardiovascular: Rate/Rhythm: RRR, Heart Sounds: normal S1 and normal S2 Vessels: no JVD Extremities: no edema Gastrointestinal (Abdomen): Inspection/Auscultation: abdomen normal to inspection and + abdomen distended Percussion/Palpation: abdomen soft; abdomen nontender, no guarding and abdomen not rigid Musculoskeletal: no cyanosis or clubbing, extremities motor strength 5/5, decreased swelling of right knee, bandaid noticed on right knee. Skin: no rashes, warm and dry Neurologic: + does not move all extremities and + not awake Psychiatric: Orientation: cooperative; + not alert and + not oriented to person Results & Data ([facility]) Vital Signs (Past 12 Hours) Vital Signs Temp Pulse Resp BP Pulse Ox 04/24/19 15:42 36.9 C 74 17 146/88 H 94 04/24/19 11:15 136/83 PG Care Time/CCT Total # of Minutes Spent Total Time Spent with Patient: Total time spent is greater than 50% in coordination of care (as documented) at patient's floor/unit and/or counseling patient: Coding Level of Care Code 35203 Subseq Hosp Care Lvl 2 Diagnoses Angioedema T78.3XXA Encounter type: initial encounter Hypertension I10 Alcohol use Z72.89 Polycythemia D75.1 Anxiety F41.9 DVT prophylaxis Z29.9 Effusion of knee joint right M25.461 Time Spent (min) 25 (1) Angioedema Encounter type: initial encounter Qualified Code(s): T78.3XXA - Angioneurotic edema, initial encounter
[2019-04-25] MEDS: CLINDAMYCIN HCL 150 MG CAP PO SCH ×2 (05:23→12:06)
[2019-04-25] MEDS ORDERED: SODIUM CHLORIDE 0.65% NA SOLN 45 ML (OCEAN) ONE (05:38)
[2019-04-25 06:24] LABS: BUN Creatinine Ratio 18.4 (10-20); Calcium 8.9 mg/dl (8.5-10.1); Creatinine Clr Calc Pharmacy 199.1 ml/min; Est GFR (African American) 145.8; Est GFR (Non-African American) 125.8; Phosphorus 3.9 mg/dl (2.5-4.9); Potassium 3.2 mmol/L (3.5-5.1)
[2019-04-25] MEDS: FOLIC ACID 1 MG TAB PO SCH (08:40)
[2019-04-25] MEDS: INDOMETHACIN 25 MG CAP PO SCH ×2 (08:41→13:36)
[2019-04-25] MEDS: AMLODIPINE BESYLATE 5 MG TAB PO SCH (08:41)
[2019-04-25] MEDS: ESCITALOPRAM OXALATE 10 MG TAB PO SCH (08:41)
[2019-04-25] MEDS: FAMOTIDINE 40 MG TABLET PO SCH (08:41)
[2019-04-25] MEDS: METOPROLOL SUCC 50MG EXT REL TAB PO SCH (08:42)
[2019-04-25] MEDS: THIAMINE HCL 100 MG TAB PO SCH (08:42)
[2019-04-25] MEDS: ENOXAPARIN INJ 30 MG/0.3 ML SYR SQ SCH (09:37)
--- NOTE | 2019-04-25 12:36 | XRay Report ---
XR ankle LT min 3V routine, XR foot LT min 3V routine CLINICAL HISTORY: Left ankle and foot pain. COMPARISON STUDY: None. FINDINGS: Soft tissue swelling within the left ankle. No fracture or dislocation within the left ankl e or left foot. Posterior calcaneal spur. 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 The Lisfranc j oint is intact. IMPRESSION: Left ankle soft tissue swelling. No fractures within the left ankle or left foot. ACT 112: Negative or not required by law. Electronically signed by: James Ceja M.D. 04/25/2019 12:34 PM
[2019-04-25] MEDS ORDERED: POTASSIUM CHLORIDE 20 MEQ TABCR PO SCH (14:00)
--- NOTE | 2019-04-26 12:24 | Discharge Summary ---
Date of Service April 25, 2019 Admission HPI Per Admitting Provider 38yo M w/ hx of HTN, alcohol use who presents with angioedema. Per report, the patient was at an alcohol rehab facility with high blood pressure. His lisinopril was increased (per report, he was already on a lower d ose), and he had an episode of angioedema and was brought to the Emergency Department. He was breathing through his mouth and denied shortness of breath, but given the risk of airway closure, he agreed to intubation as a preventative measure. The swelling of his airway was bad enough that anesthesiology was called, and he was intubated in the PACU via naso-tracheal intubation. Principal Diagnosis angioedema Discharge Exam Constitutional: WD/WN, vitals as above + morbidly obese Eyes: EOM intact bilaterally; no conjunctival abnormality ENMT: external ear and nose normal, Neck: trachea midline, no thyromegaly normal visual inspection Respiratory: normal respiratory effort, lungs clear to auscultation no respiratory distress Cardiovascular: Rate/Rhythm: RRR, Heart Sounds: normal S1 and normal S2 Vessels: no JVD Extremities: no edema Gastrointestinal (Abdomen): Inspection/Auscultation: abdomen normal to inspection and + abdomen distended Percussion/Palpation: abdomen soft; abdomen nontender, no guarding and abdomen not rigid Musculoskeletal: no cyanosis or clubbing, extremities motor strength 5/5, decreased swelling of right knee, bandaid noticed on right knee. Skin: no rashes, warm and dry Discharge Data Allergies Allergy/AdvReac Type Severity Reaction Status Date / Time HOLLAND Inhibitors Allergy Severe Angioedema Verified 04/20/19 10:43 Penicillins Allergy Mild Unknown Unverified 04/20/19 08:41 Sulfa (Sulfonamide Allergy Mild Unknown Unverified 04/20/19 08:41 Antibiotics) Consultations 04/20/19 08:04 Consult Financial Analyst Intern Stat 04/20/19 08:11 Consult Anesthesiology Stat 04/20/19 08:49 ED Decision to Admit Stat 04/20/19 09:22 Consult Case Management - Discharge Planning Routine 04/23/19 17:19 Consult Orthopedic Surgery Routine Ordered Studies 04/22/19 09:59 CT angio chest PE protocol Routine Hospital Course (1) Angioedema: Patient developed angioedema from lisinopril/ Patient required intubation to protect his airway. Patient was extubated on 04/22/28 Patient was transitioned to oxymask, nasal cannula, to room air. Will withhold holland inhibitor. (2) Hypertension: Despite stopping lisinopril. His blood pressure was controlled with amlodipine and metoprolol. will continue to monitor. (3) Alcohol use: Per report was in a drug/alcohol rehab facility. (4) Polycythemia: Hgb of 18 on admission. Possibly due to smoking. Unclear if he has ever had this before or any prior work-up. - On DVT ppx Hemoglobin improved to 15 (5) Anxiety: Per indication from his medications. Will need to ensure Keppra is not for any seizure disorder and monitor for seizures once off sedation. - Continue medications as able (6) DVT prophylaxis: Lovenox 30 mg SQ BID (7) Effusion of knee joint right: Patient was found to have gout. Patient will be placed on NSAID for 5 more days. Will have about 6 days of NSAIDs. He required an arthrocenthesis. Will recommend he follows up with his PCP. May need preventative treatment. will defer to PCP. Also explained dietary modifications and cutting back of his alcohol intake Total Time Total Time Spent Total Time Spent (In Minutes): 35 Total Time Includes: Examination of the Patient, Discharge Planning and Medication Reconciliation Discharge Plan Discharge Items Patient Disposition: Home - Self-Care Reason For Visit: ANGIOEDEMA Discharge Diagnosis: Angioedema Activity: Resume your previous activity Non-emergency contact: Primary Care Provider Call non-emergency contact if: you have any medication questions Follow-up/Referrals: PCP,NO [Primary Care Provider] - Diet: Regular Addtl Attending Provider Instructions: You have been hospitalized for an acute medical problem. During your stay at [facility], we have made an effort to correct the problem that brought you to the hospital while keeping you as comfortable as possible. Medications were used to bring your condition under control and your discharge instructions will include directions for any medications you should take after leaving the hospital. Please make sure you see your Primary Care Provider as part of your follow up plan. Recommend stopping holland inhibitor. Your blood pressure has been controlled with the other medications. Will recommend to continue at this time. Will recommend you followup with your PCP once you return home. Continue indomethacin for 5 more days. This will help treat your gout. Also recommend checking your BMP (blood test) in 1 week to check your potassium Pending Studies at Discharge: No Stand-Alone Forms: My [facility], Smoking Cessation Medications and DC Order Prescriptions: New clindamycin HCl 150 mg Capsule 300 mg PO Q6 Qty: 7 RF: 0 nicotine 7 mg/24 hr Patch 24 Hour 14 mg transdermal QAM Qty: 30 RF: 0 indomethacin 50 mg capsule 50 mg PO TID Qty: 15 RF: 0 potassium chloride 10 mEq tablet extended release 10 meq PO TID Qty: 12 RF: 0 Continued multivitamin Tablet 1 tab PO DAILY RF: 0 levetiracetam [Keppra] 500 mg Tablet 500 mg PO UD RF: 0 metoprolol succinate 100 mg Tablet Extended Release 24 Hr 100 mg PO DAILY RF: 0 thiamine HCl (vitamin B1) 100 mg Tablet 100 mg PO UD RF: 0 omeprazole 40 mg Capsule,Delayed Release(Dr/Ec) 40 mg PO DAILY RF: 0 buspirone 10 mg Tablet 10 mg PO DAILY@1700 RF: 0 folic acid 1 mg Tablet 1 mg PO UD RF: 0 Flovent HFA 110 mcg/actuation Hfa Aerosol Inhaler 2 puff INHALATION BID RF: 0 escitalopram oxalate [Lexapro] 10 mg Tablet 10 mg PO DAILY@1700 RF: 0 Changed amlodipine [Norvasc] 10 mg Tablet 10 mg PO DAILY Qty: 0 RF: 0 Discontinued lisinopril 20 mg Tablet 20 mg PO BID RF: 0 prednisone 50 mg Tablet 50 mg PO UD RF: 0 Discharge Orders: Discharge Order (Routine); Ordered 04/25/19 Ordered By: Edward Barnes Admission Data Admit Date/Time: 04/20/19 09:17 Attending Provider: Edward Barnes Admit Provider: Irvin Rizzo Primary Care Provider: PCP,NO Other Providers: Fady Cardoza ; Feliberto Morgan ; Víctor Liu ; Be Dawn Other Interventions: Discharge Summary Assessment (RN) Last Done: 04/25/19 14:35 DC Date/Time DO NOT enter until pt leaves facility: 04/25/19 15:00 Coding Level of Care Code D/C Day Management >30 mins Diagnoses Angioedema T78.3XXA Encounter type: initial encounter Hypertension I10 Alcohol use Z72.89 Polycythemia D75.1 Anxiety F41.9 DVT prophylaxis Z29.9 Effusion of knee joint right M25.461 Time Spent (min) 35
== END 2019-04-25 15:00 | disposition alcohol treatment (31) | DRG 915 ==
LOC: ED 07:53 → ASU 08:25 → SUATTDRO 09:17 → 1E 09:17 → 3W 04-23 10:39